=== PATIENT | male | born 1975 | race Caucasian/White ===

== ENCOUNTER 2018-08-19 12:03 | Inpatient (IN) | payer BC, SELFPAY ==
[2017-07-23 17:51] VITALS: BMI 30.5
[2018-08-19] VITALS (8 sets, daily range): BP systolic 137–154; BP diastolic 77–101; PULSE 67–97; RESP 16–20; TEMP 36.6–36.8; O2SAT 96–98; BMI 29.0
--- NOTE | 2018-08-19 12:41 | PCM.HP.STD ---
History of Present Illness Date of Admission: 08/19/18 Chief Complaint: Acute alcohol withdrawal The patient is a 42 year old M with a history of chronic alcohol abuse. He drinks about 1.75 L of vodka every 3 days. He was admitted with a complaint of alcohol withdrawal. He last had a drink yesterday morning. He admits to feeling feverish and having tremors. He denies any cough or chest pain, shortness of breath, abdominal pain, diarrhea or vomiting. Is going through rehab twice in the past but was unsuccessful and fell off the wan. He has been admitted to be managed for alcohol withdrawal. CIWA score was 18 at time of admission. [] Past Medical History Allergies amoxicillin Allergy (Verified 07/23/17 17:54) Rash Penicillins Allergy (Verified 07/23/17 17:54) Rash Home Medications: Ambulatory Orders Medication Instructions Recorded NK 08/19/18 Surgical History: no surgical history Psychiatric History: Depression Lives: Alone Smoking Status: Never smoker Alcohol: Heavy Drugs: None - *Family History Maternal History Items: Diabetes, Hypertension Paternal History Items: No pertinent history Review of Systems Constitutional: Reports: Fever. Denies: Chills, Night Sweats, Weight Change Eyes: Denies: Blurred vision HEENT: Denies: Head Aches, Sinus Congestion, Sinus Drainage Cardiovascular: Denies: Chest Pain, Palpitations Respiratory: Denies: Cough, Shortness of Breath, Shortness of breath at rest, Sputum production Gastrointestinal: Denies: Abdominal Pain, Nausea, Vomiting Genitourinary: Denies: Dysuria Musculoskeletal: Denies: Joint Pain, Joint Tenderness Skin: Denies: Rash, Wounds Neurological: Reports: Tremor. Denies: Balance problems, Change in Speech, Slurred speech, Focal weakness, Seizures Psychiatric: Denies: Anxiety, Depression, Homicidal Ideations, Suicidal Ideations Hematologic/ Lymphatic: Denies: Easy Bruising, Easy Bleeding VTE Information - Inpt Only VTE Present on Admission: No VTE Pharm Prophylaxis ordered?: Yes - Physical Exam General: Alert, Oriented x3, Cooperative, No apparent distress, - - looks anxious HEENT: Atraumatic, PERRLA, EOMI, Normocephalic Oral: Dry Mucosa Neck: Supple, No JVD, Negative Carotid Bruits Lungs: Clear to auscultation, Normal air movement, No rhonchi, No wheeze, No rales Cardiovascular: Regular rate, Regular Rhythm, Normal S1, Normal S2, No murmurs Abdomen: Bowel Sounds Present, Soft, Non Tender, Non-Distended, No Hepato-splenomegaly Extremities: No clubbing, No cyanosis, No edema, Capillary Refill Less than 3 Seconds Skin: No rashes, No breakdown Musculoskeletal: No Tenderness to Palpation of Joints or Extremities Lymphatic: No Cervical, Supraclavicular, or Inguinal Adenopathy Neurological: Cranial nerves II-XII grossly intact, Neuro grossly intact, Motor Exam 5/5 strength throughout, - - tremors of UEs Psych/Mental Status: Anxious, Alert and oriented to time, place, person, mood and affect Vital Signs Temp Pulse Resp BP Pulse Ox 98.2 F 87 20 H 154/101 H 98 08/19/18 12:30 08/19/18 12:30 08/19/18 12:30 08/19/18 12:30 08/19/18 12:30 Oxygen Delivery Method Room Air Weight: 226 lb Body Mass Index (BMI) 29.0 Assessment/Plan 42-year-old male admitted for alcohol withdrawal. 1. Acute alcohol withdrawal drinks ~ 1.75L of vodka daily, last had a drink ~ yesterday CIWA score was 18 admit to Med Surg with telemetry check serum alcohol level, urine tox screen, CBC and CMP and magnesium start alcohol withdrawal protocol per [facility] Protocol with Librium monitor CIWA score 2. Elevated liver enzymes likely due to alcohol abuse total bilirubin/AST/ALT- 1.6/174/188 will monitor counselled to quit drinking 3. Thrombocytopenia: platelets are 124. likely due to alcohol abuse. Will monitor 4. Depression: on Citalopram DVT prophylaxis: lovenox Code Visit Inpatient E&M: 24414 Init Hosp L3
--- NOTE | 2018-08-19 12:48 | HP.PCM_ITS ---
History of Present Illness Date of Admission: 08/19/18 Chief Complaint: Acute alcohol withdrawal The patient is a 42 year old M with a history of chronic alcohol abuse. He drinks about 1.75 L of vodka every 3 days. He was admitted with a complaint of alcohol withdrawal. He last had a drink yesterday morning. He admits to feeling feverish and having tremors. He denies any cough or chest pain, shortness of breath, abdominal pain, diarrhea or vomiting. Is going through rehab twice in the past but was unsuccessful and fell off the wan. He has been admitted to be managed for alcohol withdrawal. CIWA score was 18 at time of admission. [] Past Medical History Allergies amoxicillin Allergy (Verified 07/23/17 17:54) Rash Penicillins Allergy (Verified 07/23/17 17:54) Rash Home Medications: Ambulatory Orders Medication Instructions Recorded NK 08/19/18 Surgical History: no surgical history Psychiatric History: Depression Lives: Alone Smoking Status: Never smoker Alcohol: Heavy Drugs: None - *Family History Maternal History Items: Diabetes, Hypertension Paternal History Items: No pertinent history Review of Systems Constitutional: Reports: Fever. Denies: Chills, Night Sweats, Weight Change Eyes: Denies: Blurred vision HEENT: Denies: Head Aches, Sinus Congestion, Sinus Drainage Cardiovascular: Denies: Chest Pain, Palpitations Respiratory: Denies: Cough, Shortness of Breath, Shortness of breath at rest, Sputum production Gastrointestinal: Denies: Abdominal Pain, Nausea, Vomiting Genitourinary: Denies: Dysuria Musculoskeletal: Denies: Joint Pain, Joint Tenderness Skin: Denies: Rash, Wounds Neurological: Reports: Tremor. Denies: Balance problems, Change in Speech, Slurred speech, Focal weakness, Seizures Psychiatric: Denies: Anxiety, Depression, Homicidal Ideations, Suicidal Ideations Hematologic/ Lymphatic: Denies: Easy Bruising, Easy Bleeding VTE Information - Inpt Only VTE Present on Admission: No VTE Pharm Prophylaxis ordered?: Yes - Physical Exam General: Alert, Oriented x3, Cooperative, No apparent distress, - - looks anxious HEENT: Atraumatic, PERRLA, EOMI, Normocephalic Oral: Dry Mucosa Neck: Supple, No JVD, Negative Carotid Bruits Lungs: Clear to auscultation, Normal air movement, No rhonchi, No wheeze, No rales Cardiovascular: Regular rate, Regular Rhythm, Normal S1, Normal S2, No murmurs Abdomen: Bowel Sounds Present, Soft, Non Tender, Non-Distended, No Hepato- splenomegaly Extremities: No clubbing, No cyanosis, No edema, Capillary Refill Less than 3 Seconds Skin: No rashes, No breakdown Musculoskeletal: No Tenderness to Palpation of Joints or Extremities Lymphatic: No Cervical, Supraclavicular, or Inguinal Adenopathy Neurological: Cranial nerves II-XII grossly intact, Neuro grossly intact, Motor Exam 5/5 strength throughout, - - tremors of UEs Psych/Mental Status: Anxious, Alert and oriented to time, place, person, mood and affect Vital Signs Temp Pulse Resp BP Pulse Ox 98.2 F 87 20 H 154/101 H 98 08/19/18 12:30 08/19/18 12:30 08/19/18 12:30 08/19/18 12:30 08/19/18 12:30 Oxygen Delivery Method Room Air Weight: 226 lb Body Mass Index (BMI) 29.0 Assessment/Plan 42-year-old male admitted for alcohol withdrawal. 1. Acute alcohol withdrawal * drinks ~ 1.75L of vodka daily, last had a drink ~ yesterday * CIWA score was 18 * admit to Med Surg with telemetry * check serum alcohol level, urine tox screen, CBC and CMP and magnesium * start alcohol withdrawal protocol per [facility] Protocol with Librium * monitor CIWA score * 2. Elevated liver enzymes * likely due to alcohol abuse * total bilirubin/AST/ALT- 1.6/174/188 * will monitor * counselled to quit drinking * 3. Thrombocytopenia: platelets are 124. likely due to alcohol abuse. Will monitor 4. Depression: on Citalopram DVT prophylaxis: lovenox Code Visit Inpatient E&M: 89421 Init Hosp L3
[2018-08-19] MEDS: LORazepam 1 MG Tablet 2 MG PO ×4 (13:05→21:55)
[2018-08-19] MEDS: Methocarbamol 750 MG Tablet PO ×2 (13:06→21:55)
[2018-08-19] MEDS: chlordiazePOXIDE 25 MG Capsule PO ×2 (13:06→17:54)
[2018-08-19] MEDS: Dicyclomine 10 MG Capsule 20 MG PO ×2 (13:06→21:55)
[2018-08-19] MEDS: cloNIDine HCl 0.1 MG Tablet 0.3 MG PO (13:06)
[2018-08-19 13:10] LABS: Absolute Lymphocyte Count 0.96 X10^3/ul (0.83-4.51); Absolute Neutrophil Count 3.4 X10^3/uL (2.0-7.7); Basophil# 0.05 X10^3/uL; Eosinophil# 0.04 X10^3/uL; Eosinophils% 0.8 % (0-5); Hematocrit 45.9 % (40-54); Hemoglobin 15.6 g/dl (13.0-16.5); Lymphocyte # 0.96 X10^3/ul (4.0); Mean Corpuscular Volume 94.1 fL (80-94); Mean Platelet Vol. 9.3 fl (6.2-12.0); Monocyte# 0.39 X10^3/uL; Monocyte% 8.1 % (0-10); Neutrophil # 3.36 X10^3/uL (2.7-7.7); Neutrophil % 69.9 % (47-70); Platelet Count 124 K/mm3 (150-450); RBC Distribution Width CV 13.4 % (11.6-14.6); RBC Distribution Width SD 46.2 fl (35.1-43.9); Red Blood Count 4.88 M/mm3 (4.6-6.2); White Blood Count 4.8 K/mm3 (4.4-11.0)
[2018-08-19 13:12] LABS: POSITIVE COUNT NO; POSITIVE DIFFERENTIAL NO; POSITIVE MORPHOLOGY NO
[2018-08-19 13:22] LABS: ALB/GLOB Ratio 1.5 RATIO (0.9-2.4); AST(SGOT) 174 U/L (15-37); Alanine Aminotransfer ALT/SGPT 188 U/L (16-61); Albumin, Serum 4.6 g/dL (3.2-5.0); Alkaline Phosphatase 81 U/L (45-117); Anion Gap 12 (5-15); BUN 15 mg/dL (7-18); BUN/Creat Ratio 15.6 RATIO (10-20); Calcium,Total 9.1 mg/dL (8.5-10.1); Chloride 98 mmol/L (98-107); Creatinine, Serum 0.96 mg/dL (0.70-1.30); EST Glomerular Filtration Rate 91 mL/min (>60); Est Glom Filt Rate - Afr Amer 110 mL/min (>60); Estimated Creatinine Clearance 116.55 ml/min; Globulin 3.1 g/dL (2.2-4.2); Glucose 94 mg/dL (74-106); Magnesium 1.7 mg/dL (1.6-2.6); Potassium 4.1 mmol/L (3.5-5.1); Protein, Total 7.7 g/dL (6.4-8.2); Sodium Level 135 mmol/L (136-145)
[2018-08-19 13:59] LABS: Amphetamine Urine VISTA NEGATIVE (<1000 ng/mL); Barbiturate Urine VISTA NEGATIVE (< 200 ng/mL); Benzodiazepine Urine VISTA NEGATIVE (< 200 ng/mL); Cocaine Urine VISTA NEGATIVE (< 300 ng/mL); Ecstacy Urine VISTA NEGATIVE (< 500 ng/mL); Methadone Urine VISTA NEGATIVE (< 300 ng/mL); PCP Urine VISTA NEGATIVE (< 25 ng/mL); THC Urine VISTA NEGATIVE (< 50 ng/mL); Vista UDS pH Range 7
[2018-08-19] MEDS: Ondansetron 8 MG Tablet PO (14:31)
[2018-08-19] MEDS: hydrOXYzine PAM 25 MG Capsule 50 MG PO (17:54)
[2018-08-19] MEDS: Thiamine Hydrochloride 100 MG Tablet PO (17:54)
[2018-08-19] MEDS: MELATONIN 3 MG TABLET PO (21:55)
[2018-08-20] VITALS (11 sets, daily range): BP systolic 119–133; BP diastolic 74–85; PULSE 45–95; RESP 16–18; TEMP 36.4–36.8; O2SAT 98–99
[2018-08-20] MEDS: chlordiazePOXIDE 25 MG Capsule PO ×4 (00:27→21:55)
[2018-08-20] MEDS: LORazepam 1 MG Tablet 2 MG PO ×5 (00:27→18:09)
[2018-08-20] MEDS: hydrOXYzine PAM 25 MG Capsule 50 MG PO ×2 (02:31→12:49)
[2018-08-20] MEDS: Methocarbamol 750 MG Tablet PO ×2 (06:21→18:09)
[2018-08-20] MEDS: Dicyclomine 10 MG Capsule 20 MG PO ×2 (06:21→18:09)
--- NOTE | 2018-08-20 09:04 | PCM.PN.HOSP ---
Subjective: Patient seen and examined. He had an uneventful night and has no complaints. He denies any fever, chills, cough, chest pain, SOB, abdominal pain, diarrhea or vomiting. Review of systems is otherwise negative. Labs and vitals reviewed. Vitals/I&O's: Vital Signs Temp Pulse Resp BP Pulse Ox 98.1 F 60 16 125/74 H 96 08/20/18 06:23 08/20/18 06:23 08/20/18 06:23 08/20/18 06:23 08/19/18 17:49 Oxygen Delivery Method Room Air Weight: 226 lb Body Mass Index (BMI) 29.0 Intake and Output for Last 24 Hours 08/18/18 08/19/18 08/20/18 23:59 23:59 23:59 Intake Total 480 / 480 800 / 800 Balance 480 / 480 800 / 800 General: Alert, Oriented x3, Cooperative, No apparent distress HEENT: Atraumatic, PERRLA, EOMI, Normocephalic Oral: Moist Mucosa Neck: Supple, No JVD, Negative Carotid Bruits Lungs: Clear to auscultation, Normal air movement, No rhonchi, No wheeze, No rales Cardiovascular: Regular rate, Regular Rhythm, Normal S1, Normal S2, No murmurs Abdomen: Bowel Sounds Present, Soft, Non Tender, Non-Distended, No Hepato-splenomegaly Extremities: No clubbing, No cyanosis, No edema, Capillary Refill Less than 3 Seconds Skin: No rashes, No breakdown Musculoskeletal: No Tenderness to Palpation of Joints or Extremities Lymphatic: No Cervical, Supraclavicular, or Inguinal Adenopathy Neurological: Cranial nerves II-XII grossly intact, Neuro grossly intact, Motor Exam 5/5 strength throughout Psych/Mental Status: Normal Affect, Appropriate, Alert and oriented to time, place, person, mood and affect Laboratory Results 08/19/18 12:55: WBC 4.8, RBC 4.88, Hgb 15.6, Hct 45.9, MCV 94.1 H, MCH 32.0, MCHC 34.0, RDW 13.4, RDW Differential 46.2 H, Plt Count 124 L, MPV 9.3, Immature Gran % (Auto) 0.200, Neut % (Auto) 69.9, Lymph % (Auto) 20.0, [place] % (Auto) 8.1, Eos % (Auto) 0.8, Baso % (Auto) 1.0, Absolute Neuts (auto) 3.4, Absolute Lymphs (auto) 0.96, Total Counted Not Reportable 08/19/18 12:55: Sodium 135 L, Potassium 4.1, Chloride 98, Carbon Dioxide 25.0, Anion Gap 12, BUN 15, Creatinine 0.96, Estim Creat Clear Calc 116.55, Est GFR (MDRD) Af Amer 110, Est GFR (MDRD) Non-Af 91, BUN/Creatinine Ratio 15.6, Glucose 94, Calcium 9.1, Magnesium 1.7, Total Bilirubin 1.60 H, AST 174 H, ALT 188 H, Alkaline Phosphatase 81, Total Protein 7.7, Albumin 4.6, Globulin 3.1, Albumin/Globulin Ratio 1.5 08/19/18 12:55: Ethyl Alcohol 94.0 08/19/18 13:30: Urine Opiates Screen NEGATIVE, Urine Methadone Screen NEGATIVE, Ur Barbiturates Screen NEGATIVE, Ur Phencyclidine Scrn NEGATIVE, Ur Amphetamines Screen NEGATIVE, U Methamphetamin-MDMA NEGATIVE, U Benzodiazepines Scrn NEGATIVE, Urine Cocaine Screen NEGATIVE, U Cannabinoids Screen NEGATIVE, Ur Drug Screen Comment Current Medications Chlordiazepoxide (Librium) 50 mg PO Q8H HETAL; Taper Stop: 08/22/18 14:44 Last Admin: 08/20/18 06:21 Dose: 50 mg Dicyclomine HCl (Bentyl) 20 mg PO Q6H PRN PRN PRN Reason: abdominal discomfort Last Admin: 08/20/18 06:21 Dose: 20 mg Enoxaparin Sodium (Lovenox) 40 mg SC DAILY@1000 HETAL Folic Acid (Folic Acid) 1 mg PO DAILY@0800 [facility] Stop: 08/22/18 08:01 Hydroxyzine Pamoate (Vistaril Pamoate Capsule) 50 mg PO Q6H PRN PRN PRN Reason: Mild Anxiety (score 1/3) Last Admin: 08/20/18 02:31 Dose: 50 mg Lorazepam (Ativan) 2 mg PO Q6H HETAL; Taper Stop: 08/25/18 12:44 Last Admin: 08/20/18 06:21 Dose: 2 mg Lorazepam (Ativan) 2 mg PO Q2H PRN PRN; Protocol PRN Reason: CIWA score > 8 but <15 Last Admin: 08/20/18 02:31 Dose: 2 mg Lorazepam (Ativan) 2 mg PO UD PRN; Protocol PRN Reason: CIWA score >/=15. Lorazepam (Ativan) 2 mg IV Q2H PRN PRN; Protocol PRN Reason: CIWA score > 8 but <15 Lorazepam (Ativan) 2 mg IV UD PRN; Protocol PRN Reason: CIWA score >/=15. Magnesium Hydroxide (Milk Of Magnesia) 30 ml PO DAILY PRN PRN PRN Reason: Constipation Melatonin (Melatonin) 3 mg PO QHS [facility] Last Admin: 08/19/18 21:55 Dose: 3 mg Methocarbamol (Methocarbamol) 750 mg PO Q6H PRN PRN PRN Reason: Muscle Aches Last Admin: 08/20/18 06:21 Dose: 750 mg Multivitamins/Minerals (Multivitamin With Minerals) [facility] Ondansetron HCl (Zofran) 8 mg PO Q8H PRN PRN PRN Reason: NAUSEA Last Admin: 08/19/18 14:31 Dose: 8 mg Sodium Chloride () 5 - 15 ml IV UD PRN PRN Reason: SALINE FLUSH Thiamine HCl (Vitamin B1) 100 mg PO BIDCM [facility] Stop: 08/22/18 08:01 Last Admin: 08/19/18 17:54 Dose: 100 mg Medical Necessity - Tobacco Use Smoking Status: Never smoker Assessment/Plan 42-year-old male admitted for alcohol withdrawal. 1. Acute alcohol withdrawal drinks ~ 1.75L of vodka daily, last had a drink ~ yesterday CIWA score this morning- 7 on alcohol withdrawal protocol with librium monitor CIWA score 2. Elevated liver enzymes likely due to alcohol abuse on admission, otal bilirubin/AST/ALT- 1.6/174/188 will monitor counselled to quit drinking 3. Thrombocytopenia: platelets were 124 on admission. likely due to alcohol abuse. Will monitor 4. Depression: on Citalopram DVT prophylaxis: lovenox Code Visit Inpatient E&M: 44093 Subs Hosp L3
--- NOTE | 2018-08-20 09:10 | PN_ITS ---
Subjective: Patient seen and examined. He had an uneventful night and has no complaints. He denies any fever, chills, cough, chest pain, SOB, abdominal pain, diarrhea or vomiting. Review of systems is otherwise negative. Labs and vitals reviewed. Vitals/I&O's: Vital Signs Temp Pulse Resp BP Pulse Ox 98.1 F 60 16 125/74 H 96 08/20/18 06:23 08/20/18 06:23 08/20/18 06:23 08/20/18 06:23 08/19/18 17:49 Oxygen Delivery Method Room Air Weight: 226 lb Body Mass Index (BMI) 29.0 Intake and Output for Last 24 Hours 08/18/18 08/19/18 08/20/18 23:59 23:59 23:59 Intake Total 480 / 480 800 / 800 Balance 480 / 480 800 / 800 General: Alert, Oriented x3, Cooperative, No apparent distress HEENT: Atraumatic, PERRLA, EOMI, Normocephalic Oral: Moist Mucosa Neck: Supple, No JVD, Negative Carotid Bruits Lungs: Clear to auscultation, Normal air movement, No rhonchi, No wheeze, No rales Cardiovascular: Regular rate, Regular Rhythm, Normal S1, Normal S2, No murmurs Abdomen: Bowel Sounds Present, Soft, Non Tender, Non-Distended, No Hepato- splenomegaly Extremities: No clubbing, No cyanosis, No edema, Capillary Refill Less than 3 Seconds Skin: No rashes, No breakdown Musculoskeletal: No Tenderness to Palpation of Joints or Extremities Lymphatic: No Cervical, Supraclavicular, or Inguinal Adenopathy Neurological: Cranial nerves II-XII grossly intact, Neuro grossly intact, Motor Exam 5/5 strength throughout Psych/Mental Status: Normal Affect, Appropriate, Alert and oriented to time, place, person, mood and affect Laboratory Results 08/19/18 12:55: WBC 4.8, RBC 4.88, Hgb 15.6, Hct 45.9, MCV 94.1 H, MCH 32.0, MCHC 34.0, RDW 13.4, RDW Differential 46.2 H, Plt Count 124 L, MPV 9.3, Immature Gran % (Auto) 0.200, Neut % (Auto) 69.9, Lymph % (Auto) 20.0, [place] % (Auto) 8.1, Eos % (Auto) 0.8, Baso % (Auto) 1.0, Absolute Neuts (auto) 3.4, Absolute Lymphs (auto) 0.96, Total Counted Not Reportable 08/19/18 12:55: Sodium 135 L, Potassium 4.1, Chloride 98, Carbon Dioxide 25.0, Anion Gap 12, BUN 15, Creatinine 0.96, Estim Creat Clear Calc 116.55, Est GFR (MDRD) Af Amer 110, Est GFR (MDRD) Non-Af 91, BUN/Creatinine Ratio 15.6, Glucose 94, Calcium 9.1, Magnesium 1.7, Total Bilirubin 1.60 H, AST 174 H, ALT 188 H, Alkaline Phosphatase 81, Total Protein 7.7, Albumin 4.6, Globulin 3.1, Albumin/Globulin Ratio 1.5 08/19/18 12:55: Ethyl Alcohol 94.0 08/19/18 13:30: Urine Opiates Screen NEGATIVE, Urine Methadone Screen NEGATIVE, Ur Barbiturates Screen NEGATIVE, Ur Phencyclidine Scrn NEGATIVE, Ur Amphetamines Screen NEGATIVE, U Methamphetamin-MDMA NEGATIVE, U Benzodiazepines Scrn NEGATIVE, Urine Cocaine Screen NEGATIVE, U Cannabinoids Screen NEGATIVE, Ur Drug Screen Comment Current Medications Chlordiazepoxide (Librium) 50 mg PO Q8H HETAL; Taper Stop: 08/22/18 14:44 Last Admin: 08/20/18 06:21 Dose: 50 mg Dicyclomine HCl (Bentyl) 20 mg PO Q6H PRN PRN PRN Reason: abdominal discomfort Last Admin: 08/20/18 06:21 Dose: 20 mg Enoxaparin Sodium (Lovenox) 40 mg SC DAILY@1000 HETAL Folic Acid (Folic Acid) 1 mg PO DAILY@0800 [facility] Stop: 08/22/18 08:01 Hydroxyzine Pamoate (Vistaril Pamoate Capsule) 50 mg PO Q6H PRN PRN PRN Reason: Mild Anxiety (score 1/3) Last Admin: 08/20/18 02:31 Dose: 50 mg Lorazepam (Ativan) 2 mg PO Q6H HETAL; Taper Stop: 08/25/18 12:44 Last Admin: 08/20/18 06:21 Dose: 2 mg Lorazepam (Ativan) 2 mg PO Q2H PRN PRN; Protocol PRN Reason: CIWA score > 8 but <15 Last Admin: 08/20/18 02:31 Dose: 2 mg Lorazepam (Ativan) 2 mg PO UD PRN; Protocol PRN Reason: CIWA score >/=15. Lorazepam (Ativan) 2 mg IV Q2H PRN PRN; Protocol PRN Reason: CIWA score > 8 but <15 Lorazepam (Ativan) 2 mg IV UD PRN; Protocol PRN Reason: CIWA score >/=15. Magnesium Hydroxide (Milk Of Magnesia) 30 ml PO DAILY PRN PRN PRN Reason: Constipation Melatonin (Melatonin) 3 mg PO QHS [facility] Last Admin: 08/19/18 21:55 Dose: 3 mg Methocarbamol (Methocarbamol) 750 mg PO Q6H PRN PRN PRN Reason: Muscle Aches Last Admin: 08/20/18 06:21 Dose: 750 mg Multivitamins/Minerals (Multivitamin With Minerals) [facility] Ondansetron HCl (Zofran) 8 mg PO Q8H PRN PRN PRN Reason: NAUSEA Last Admin: 08/19/18 14:31 Dose: 8 mg Sodium Chloride () 5 - 15 ml IV UD PRN PRN Reason: SALINE FLUSH Thiamine HCl (Vitamin B1) 100 mg PO BIDCM [facility] Stop: 08/22/18 08:01 Last Admin: 08/19/18 17:54 Dose: 100 mg Medical Necessity - Tobacco Use Smoking Status: Never smoker Assessment/Plan 42-year-old male admitted for alcohol withdrawal. 1. Acute alcohol withdrawal * drinks ~ 1.75L of vodka daily, last had a drink ~ yesterday * CIWA score this morning- 7 * on alcohol withdrawal protocol with librium * monitor CIWA score * 2. Elevated liver enzymes * likely due to alcohol abuse * on admission, otal bilirubin/AST/ALT- 1.6/174/188 * will monitor * counselled to quit drinking * 3. Thrombocytopenia: platelets were 124 on admission. likely due to alcohol abuse. Will monitor 4. Depression: on Citalopram DVT prophylaxis: lovenox Code Visit Inpatient E&M: 22721 Subs Hosp L3
[2018-08-20] MEDS: Multivitamins,Ther W-Minerals Tablet 1 TABLET PO (09:36)
[2018-08-20] MEDS: Folic Acid 1 MG Tablet PO (09:36)
[2018-08-20] MEDS: Thiamine Hydrochloride 100 MG Tablet PO ×2 (09:36→18:10)
[2018-08-20] MEDS: Enoxaparin 40 MG/0.4 ML Syringe SC (09:37)
--- NOTE | 2018-08-20 16:34 | CHAPLAIN ---
Type of Pastoral Visit _x__ Initial Visit ___ Follow-up Visit ___ On-call Visit ___ General Patient Visit ___ Spiritual Assessment ___ Family Conference ___ Bereavement ___ Rapid Response ___ Code Blue ___ Other (describe below) Pastoral Care Referral From _x__ Patient ___ Family ___ Nurse ___ Physician ___ Supervisor [place] ___ Account Resolution Expert ___ Other (describe below) Sacrament/Intervention _x__ Active listening ___ Anointing ___ Christianity ___ Bereavement ___ Communion _x__ Samantha exploration ___ _x__ Life review _x__ Prayer ___ Reconciliation ___ Sacrament of Sick _x__ Supportive presence ___ Wedding ___ Other (describe below) Pastoral Comments patient very talkative and gave adult life story; pt has deep samantha and is well connected to the Judaism heritage; pt is very open about his need for emotional, social, and spiritual support in life; pt has good family support at this time; pt is open to further spiritual support and conversation
[2018-08-20] MEDS: Loperamide 2 MG Capsule PO (18:28)
[2018-08-20] MEDS: MELATONIN 3 MG TABLET PO (21:55)
[2018-08-21] MEDS: LORazepam 1 MG Tablet 2 MG PO ×5 (00:15→20:23)
[2018-08-21] MEDS: chlordiazePOXIDE 25 MG Capsule PO ×2 (06:27→15:17)
[2018-08-21 06:30] VITALS: BP 120/77; PULSE 76; RESP 16; TEMP 36.7; O2SAT 99
[2018-08-21] MEDS: Thiamine Hydrochloride 100 MG Tablet PO ×2 (08:11→17:05)
[2018-08-21] MEDS: Multivitamins,Ther W-Minerals Tablet 1 TABLET PO (08:12)
[2018-08-21] MEDS: Folic Acid 1 MG Tablet PO (08:12)
--- NOTE | 2018-08-21 11:46 | PCM.PN.HOSP ---
Subjective: Patient seen and examined. He complains of some lightheadedness and dizziness when he walks. He denies any chest pain or palpitations, abdominal pain, fever chills, diarrhea vomiting. 12 point review of systems otherwise negative. Labs and vitals reviewed. Vitals/I&O's: Vital Signs Temp Pulse Resp BP Pulse Ox 98.0 F 76 16 120/77 99 08/21/18 06:30 08/21/18 06:30 08/21/18 06:30 08/21/18 06:30 08/21/18 06:30 Oxygen Delivery Method Room Air Weight: 226 lb 0.004 oz Body Mass Index (BMI) 29.0 Intake and Output for Last 24 Hours 08/19/18 08/20/18 08/21/18 23:59 23:59 23:59 Intake Total 480 / 480 800 / 800 Balance 480 / 480 800 / 800 General: Alert, Oriented x3, Cooperative, No apparent distress HEENT: Atraumatic, PERRLA, EOMI, Normocephalic Oral: Moist Mucosa Neck: Supple, No JVD, Negative Carotid Bruits Lungs: Clear to auscultation, Normal air movement, No rhonchi, No wheeze, No rales Cardiovascular: Regular rate, Regular Rhythm, Normal S1, Normal S2, No murmurs Abdomen: Bowel Sounds Present, Soft, Non Tender, Non-Distended, No Hepato-splenomegaly Extremities: No clubbing, No cyanosis, No edema, Capillary Refill Less than 3 Seconds Skin: No rashes, No breakdown Musculoskeletal: No Tenderness to Palpation of Joints or Extremities Lymphatic: No Cervical, Supraclavicular, or Inguinal Adenopathy Neurological: Cranial nerves II-XII grossly intact, Neuro grossly intact, Motor Exam 5/5 strength throughout Psych/Mental Status: Normal Affect, Appropriate, Alert and oriented to time, place, person, mood and affect Current Medications Chlordiazepoxide (Librium) 50 mg PO Q8H HETAL; Taper Stop: 08/22/18 14:44 Last Admin: 08/21/18 06:27 Dose: 50 mg Dicyclomine HCl (Bentyl) 20 mg PO Q6H PRN PRN PRN Reason: abdominal discomfort Last Admin: 08/20/18 18:09 Dose: 20 mg Enoxaparin Sodium (Lovenox) 40 mg SC DAILY@1000 HETAL Last Admin: 08/20/18 09:37 Dose: 40 mg Folic Acid (Folic Acid) 1 mg PO DAILY@0800 [facility] Stop: 08/22/18 08:01 Last Admin: 08/21/18 08:12 Dose: 1 mg Hydroxyzine Pamoate (Vistaril Pamoate Capsule) 50 mg PO Q6H PRN PRN PRN Reason: Mild Anxiety (score 1/3) Last Admin: 08/20/18 12:49 Dose: 50 mg Loperamide HCl (Imodium) 2 mg PO Q4H PRN PRN PRN Reason: Diarrhea Last Admin: 08/20/18 18:28 Dose: 2 mg Lorazepam (Ativan) 2 mg PO Q6H [facility]; Taper Stop: 08/25/18 12:44 Last Admin: 08/21/18 06:27 Dose: 2 mg Lorazepam (Ativan) 2 mg PO Q2H PRN PRN; Protocol PRN Reason: CIWA score > 8 but <15 Last Admin: 08/20/18 02:31 Dose: 2 mg Lorazepam (Ativan) 2 mg PO UD PRN; Protocol PRN Reason: CIWA score >/=15. Lorazepam (Ativan) 2 mg IV Q2H PRN PRN; Protocol PRN Reason: CIWA score > 8 but <15 Lorazepam (Ativan) 2 mg IV UD PRN; Protocol PRN Reason: CIWA score >/=15. Magnesium Hydroxide (Milk Of Magnesia) 30 ml PO DAILY PRN PRN PRN Reason: Constipation Melatonin (Melatonin) 3 mg PO QHS [facility] Last Admin: 08/20/18 21:55 Dose: 3 mg Methocarbamol (Methocarbamol) 750 mg PO Q6H PRN PRN PRN Reason: Muscle Aches Last Admin: 08/20/18 18:09 Dose: 750 mg Multivitamins/Minerals (Multivitamin With Minerals) [facility] Last Admin: 08/21/18 08:12 Dose: 1 tablet Ondansetron HCl (Zofran) 8 mg PO Q8H PRN PRN PRN Reason: NAUSEA Last Admin: 08/19/18 14:31 Dose: 8 mg Sodium Chloride () 5 - 15 ml IV UD PRN PRN Reason: SALINE FLUSH Thiamine HCl (Vitamin B1) [facility] Stop: 08/22/18 08:01 Last Admin: 08/21/18 08:11 Dose: 100 mg Medical Necessity - Tobacco Use Smoking Status: Never smoker Assessment/Plan 42-year-old male admitted for alcohol withdrawal. 1. Acute alcohol withdrawal on alcohol withdrawal protocol with librium monitor CIWA score 2. Elevated liver enzymes likely due to alcohol abuse on admission, total bilirubin/AST/ALT- 1.6/174/188 will monitor counselled to quit drinking 3. Thrombocytopenia: due to alcohol abuse. counseled to quit drinking. 4. Depression: on Citalopram DVT prophylaxis: lovenox Code Visit Inpatient E&M: 45853 Subs Hosp L2
--- NOTE | 2018-08-21 11:52 | PN_ITS ---
Subjective: Patient seen and examined. He complains of some lightheadedness and dizziness when he walks. He denies any chest pain or palpitations, abdominal pain, fever chills, diarrhea vomiting. 12 point review of systems otherwise negative. Labs and vitals reviewed. Vitals/I&O's: Vital Signs Temp Pulse Resp BP Pulse Ox 98.0 F 76 16 120/77 99 08/21/18 06:30 08/21/18 06:30 08/21/18 06:30 08/21/18 06:30 08/21/18 06:30 Oxygen Delivery Method Room Air Weight: 226 lb 0.004 oz Body Mass Index (BMI) 29.0 Intake and Output for Last 24 Hours 08/19/18 08/20/18 08/21/18 23:59 23:59 23:59 Intake Total 480 / 480 800 / 800 Balance 480 / 480 800 / 800 General: Alert, Oriented x3, Cooperative, No apparent distress HEENT: Atraumatic, PERRLA, EOMI, Normocephalic Oral: Moist Mucosa Neck: Supple, No JVD, Negative Carotid Bruits Lungs: Clear to auscultation, Normal air movement, No rhonchi, No wheeze, No rales Cardiovascular: Regular rate, Regular Rhythm, Normal S1, Normal S2, No murmurs Abdomen: Bowel Sounds Present, Soft, Non Tender, Non-Distended, No Hepato- splenomegaly Extremities: No clubbing, No cyanosis, No edema, Capillary Refill Less than 3 Seconds Skin: No rashes, No breakdown Musculoskeletal: No Tenderness to Palpation of Joints or Extremities Lymphatic: No Cervical, Supraclavicular, or Inguinal Adenopathy Neurological: Cranial nerves II-XII grossly intact, Neuro grossly intact, Motor Exam 5/5 strength throughout Psych/Mental Status: Normal Affect, Appropriate, Alert and oriented to time, place, person, mood and affect Current Medications Chlordiazepoxide (Librium) 50 mg PO Q8H [facility]; Taper Stop: 08/22/18 14:44 Last Admin: 08/21/18 06:27 Dose: 50 mg Dicyclomine HCl (Bentyl) 20 mg PO Q6H PRN PRN PRN Reason: abdominal discomfort Last Admin: 08/20/18 18:09 Dose: 20 mg Enoxaparin Sodium (Lovenox) 40 mg SC DAILY@1000 [facility] Last Admin: 08/20/18 09:37 Dose: 40 mg Folic Acid (Folic Acid) 1 mg PO DAILY@0800 [facility] Stop: 08/22/18 08:01 Last Admin: 08/21/18 08:12 Dose: 1 mg Hydroxyzine Pamoate (Vistaril Pamoate Capsule) 50 mg PO Q6H PRN PRN PRN Reason: Mild Anxiety (score 1/3) Last Admin: 08/20/18 12:49 Dose: 50 mg Loperamide HCl (Imodium) 2 mg PO Q4H PRN PRN PRN Reason: Diarrhea Last Admin: 08/20/18 18:28 Dose: 2 mg Lorazepam (Ativan) 2 mg PO Q6H [facility]; Taper Stop: 08/25/18 12:44 Last Admin: 08/21/18 06:27 Dose: 2 mg Lorazepam (Ativan) 2 mg PO Q2H PRN PRN; Protocol PRN Reason: CIWA score > 8 but <15 Last Admin: 08/20/18 02:31 Dose: 2 mg Lorazepam (Ativan) 2 mg PO UD PRN; Protocol PRN Reason: CIWA score >/=15. Lorazepam (Ativan) 2 mg IV Q2H PRN PRN; Protocol PRN Reason: CIWA score > 8 but <15 Lorazepam (Ativan) 2 mg IV UD PRN; Protocol PRN Reason: CIWA score >/=15. Magnesium Hydroxide (Milk Of Magnesia) 30 ml PO DAILY PRN PRN PRN Reason: Constipation Melatonin (Melatonin) 3 mg PO QHS [facility] Last Admin: 08/20/18 21:55 Dose: 3 mg Methocarbamol (Methocarbamol) 750 mg PO Q6H PRN PRN PRN Reason: Muscle Aches Last Admin: 08/20/18 18:09 Dose: 750 mg Multivitamins/Minerals ([facility]ivitamin With Minerals) [facility] Last Admin: 08/21/18 08:12 Dose: 1 tablet Ondansetron HCl (Zofran) 8 mg PO Q8H PRN PRN PRN Reason: NAUSEA Last Admin: 08/19/18 14:31 Dose: 8 mg Sodium Chloride () 5 - 15 ml IV UD PRN PRN Reason: SALINE FLUSH Thiamine HCl (Vitamin B1) [facility] Stop: 08/22/18 08:01 Last Admin: 08/21/18 08:11 Dose: 100 mg Medical Necessity - Tobacco Use Smoking Status: Never smoker Assessment/Plan 42-year-old male admitted for alcohol withdrawal. 1. Acute alcohol withdrawal * on alcohol withdrawal protocol with librium * monitor CIWA score * 2. Elevated liver enzymes * likely due to alcohol abuse * on admission, total bilirubin/AST/ALT- 1.6/174/188 * will monitor * counselled to quit drinking * 3. Thrombocytopenia: due to alcohol abuse. counseled to quit drinking. 4. Depression: on Citalopram DVT prophylaxis: lovenox Code Visit Inpatient E&M: 05056 Subs Hosp L2
[2018-08-21 11:56] VITALS: BP 127/90; RESP 18
[2018-08-21] MEDS: Methocarbamol 750 MG Tablet PO ×2 (12:00→20:23)
--- NOTE | 2018-08-21 14:13 | CHAPLAIN ---
Type of Pastoral Visit ___ Initial Visit _x__ Follow-up Visit ___ On-call Visit ___ General Patient Visit ___ Spiritual Assessment ___ Family Conference ___ Bereavement ___ Rapid Response ___ Code Blue ___ Other (describe below) Pastoral Care Referral From _x__ Patient ___ Family ___ Nurse ___ Physician ___ Performance Test Architect ___ Staff Development Manager ___ Other (describe below) Sacrament/Intervention _x__ Active listening ___ Anointing ___ Temple ___ Bereavement ___ Communion ___ Samantha exploration ___ ___ Life review ___ Prayer ___ Reconciliation ___ Sacrament of Sick ___ Supportive presence ___ Wedding ___ Other (describe below) Pastoral Comments
[2018-08-21] MEDS: MELATONIN 3 MG TABLET PO (21:14)
[2018-08-21 21:15] VITALS: BP 126/80; PULSE 87; RESP 16; TEMP 36.8; O2SAT 98
[2018-08-21 21:20] VITALS: BP 126/80; PULSE 87; RESP 16; TEMP 36.8; O2SAT 99
[2018-08-22 03:41] VITALS: BP 123/72; PULSE 57; RESP 16; TEMP 36.5; O2SAT 98
[2018-08-22] MEDS: chlordiazePOXIDE 25 MG Capsule PO (03:43)
[2018-08-22] MEDS: LORazepam 1 MG Tablet 2 MG PO (03:44)
[2018-08-22 07:51] VITALS: BP 114/79; PULSE 82; RESP 14; TEMP 36.3; O2SAT 99
[2018-08-22] MEDS: Thiamine Hydrochloride 100 MG Tablet PO (07:57)
[2018-08-22] MEDS: Folic Acid 1 MG Tablet PO (07:57)
[2018-08-22] MEDS: Multivitamins,Ther W-Minerals Tablet 1 TABLET PO (07:57)
--- NOTE | 2018-08-22 09:11 | PCM.DC ---
You will use the following diet at home:: No restrictions Your food should be the consistency of: Regular Your liquids should be the consistency of: Regular/Thin Discharge Activity: Return to Normal Activity Weight Bearing Status: Weight bearing as tolerated Call your doctor if you observe: Shortness of breath, Dizziness Allergies/Adverse Reactions: Allergies amoxicillin Allergy (Verified 07/23/17 17:54) Rash Penicillins Allergy (Verified 07/23/17 17:54) Rash Medications to take at Discharge NK 08/19/18 Primary Care Physician: Mekhi Lynn MD [Primary Care Provider] - Please follow up with your Primary Care Physician in: 1-2 weeks Test Results: Test results from this visit will be discussed in further detail at your follow-up appointment, if applicable. Proposed Discharge Date: 08/22/18
--- NOTE | 2018-08-22 09:14 | DCINST_ITS ---
You will use the following diet at home:: No restrictions Your food should be the consistency of: Regular Your liquids should be the consistency of: Regular/Thin Discharge Activity: Return to Normal Activity Weight Bearing Status: Weight bearing as tolerated Call your doctor if you observe: Shortness of breath, Dizziness Allergies/Adverse Reactions: Allergies amoxicillin Allergy (Verified 07/23/17 17:54) Rash Penicillins Allergy (Verified 07/23/17 17:54) Rash Medications to take at Discharge NK 08/19/18 Primary Care Physician: Mekhi Lynn MD [Primary Care Provider] - Please follow up with your Primary Care Physician in: 1-2 weeks Test Results: Test results from this visit will be discussed in further detail at your follow- up appointment, if applicable. Proposed Discharge Date: 08/22/18
--- NOTE | 2018-08-22 09:14 | DS.PCM_ITS ---
Discharge Date and Diagnosis Date of Admission: 08/19/18 Date of Discharge: 08/22/18 - Primary Discharge Diagnosis acute alcohol withdrawal Hospital Course and Treatment Operations: None Procedures: None Summary of Care Provided: The patient is a 42 year old M with a history of chronic alcohol abuse. He drinks about 1.75 L of vodka every 3 days. He was admitted with a complaint of alcohol withdrawal. He last had a drink on the morning prior to the day of admission. He had associated fever and tremors. He had gone through rehab twice in the past but was unsuccessful. He was admitetd and managed for alcohol withdrawal. CIWA score was 18 at time of admission. He was put on alcohol withdrawal protocol with Librium. Liver enzymes were noted to be elevated during admission, which was thought to be due to alcohol abuse. Patient remained stable and was discharged home on 08/22/18. To follow-up with his PCP for serial monitoring of his liver enzymes and for referral to gastroenterology as deemed appropriate Patient seen and examined on the day of discharge. He had no complaints and felt well. He denied any fever, any chills, cough or chest pain, abdominal pain, diarrhea vomiting. 12 point review of systems otherwise negative. Labs and vitals reviewed. Home medications reviewed and reconciled. On examination Vital Signs Height 6 ft 2 in Weight: 226 lb 0.004 oz Weight in Pounds 226.0 lbs Pulse Ox 99 Temperature 97.4 F Pulse Rate 82 Respiratory Rate 14 Blood Pressure 114/79 Blood Pressure Position Sitting General: Alert, Oriented x3, Cooperative, No apparent distress HEENT: Atraumatic, PERRLA, EOMI, Normocephalic Oral: Moist Mucosa Neck: Supple, No JVD, Negative Carotid Bruits Lungs: Clear to auscultation, Normal air movement, No rhonchi, No wheeze, No rales Cardiovascular: Regular rate, Regular Rhythm, Normal S1, Normal S2, No murmurs Abdomen: Bowel Sounds Present, Soft, Non Tender, Non-Distended, No Hepato- splenomegaly Extremities: No clubbing, No cyanosis, No edema, Capillary Refill Less than 3 Seconds Skin: No rashes, No breakdown Musculoskeletal: No Tenderness to Palpation of Joints or Extremities Lymphatic: No Cervical, Supraclavicular, or Inguinal Adenopathy Neurological: Cranial nerves II-XII grossly intact, Neuro grossly intact, Motor Exam 5/5 strength throughout Psych/Mental Status: Normal Affect, Appropriate, Alert and oriented to time, place, person, mood and affect - Physical Exam Vital Signs Temp Pulse Resp BP Pulse Ox 97.4 F L 82 14 114/79 99 08/22/18 07:51 08/22/18 07:51 08/22/18 07:51 08/22/18 07:51 08/22/18 07:51 Oxygen Delivery Method Room Air Weight: 226 lb 0.004 oz Body Mass Index (BMI) 29.0 Intake and Output for Last 24 Hours 08/20/18 08/21/18 08/22/18 23:59 23:59 23:59 Intake Total 800 / 800 Balance 800 / 800 Discharge Diet: Low fat/ Low Cholesterol Discharge Activity: Return to Normal Activity Weight Bearing Status: Weight bearing as tolerated Call your doctor if you observe: Shortness of breath, Dizziness Home Medications: Medications to take at Discharge NK 08/19/18 Primary Care Physician: Mekhi Lynn MD [Primary Care Provider] - Please follow up with your Primary Care Physician in: 1-2 weeks Disposition: Home Minutes spent on discharge:: 37 Patient Condition:: Stable Medical Necessity - Tobacco Use Smoking Status: Never smoker Meaningful Use Info Meaningful Use Diagnoses (Choose all that apply): None applicable Code Visit Inpatient E&M: 60090 Disch Hosp
== END 2018-08-22 10:35 | disposition home or self-care (01) | DRG 897 ==
PROVIDERS: Admitting Provider Student in an Organized Health Care Education/Training Program; Family Provider Family Medicine; PCP Family Medicine; Referring Provider Student in an Organized Health Care Education/Training Program; Visit Provider Student in an Organized Health Care Education/Training Program
DX: F10.239 Alcohol dependence with withdrawal, unspecified (principal); F32.9 Major depressive disorder, single episode, unspecified; R74.8 Abnormal levels of other serum enzymes; D69.59 Other secondary thrombocytopenia
CPT/HCPCS: 36415; 80053; 80307; 80320; 83735; 85025; 97802; G0480

== ENCOUNTER 2018-12-31 16:28 | Inpatient (IN) | payer BC, SELFPAY ==
[2018-08-19 12:22] VITALS: BMI 29.0
[2018-12-31 16:29] VITALS: BP 149/95; PULSE 80; RESP 16; TEMP 36.7; O2SAT 96; BMI 29.0
--- NOTE | 2018-12-31 16:55 | ED.VISSUMM ---
- ER Visit Summary Date of Service: 12/31/18 Chief Complaint: Wants detox History of Present Illness: The patient is a 43 M presenting wanting alcohol detox. Patient was sent by [facility] for evaluation. Patient states he has been drinking heavily over the past week. His last detox was in August. He was sober until a week ago. He had a relationship break-up a week ago that started caused him to start drinking again. Denies suicidal ideation. He drinks 1.75 L vodka per day. No history of withdrawal seizures. History of remote DTs. Denies drug use. Physical Examination: Vitals are stable. Patient is afebrile. Alert no acute distress. HEENT exam is unremarkable. Neck is supple. Lungs are clear and equal bilaterally. Heart is regular rate and rhythm. Abdomen is soft nontender nondistended. Extremities are unremarkable. Skin is warm and dry. No focal neurologic deficit. Remainder of exam is unremarkable. Emergency Department Course and Treatment: CIWA score 37. CBC, chemistries unremarkable. Liver enzymes show ALT 258, AST 214. Tox negative. Alcohol 304. Discussed with hospitalist for admission. Disposition: Admission Impression: Alcohol withdrawal This note was generated with [employer] dictation software. It may contain incorrect words, spelling, and punctuation that were not noted in review of the chart prior to signing ED Disposition - Plan for ED Patient: Referrals: Mekhi Lynn MD [Primary Care Provider] -
[2018-12-31 17:21] LABS: Absolute Lymphocyte Count 1.39 X10^3/ul (0.83-4.51); Absolute Neutrophil Count 2.7 X10^3/uL (2.0-7.7); Basophil# 0.05 X10^3/uL; Basophil% 1.1 % (0-1); Eosinophil# 0.14 X10^3/uL; Hematocrit 47.5 % (40-54); Hemoglobin 16.4 g/dl (13.0-16.5); Lymphocyte # 1.39 X10^3/ul (4.0); Lymphocyte % 30.2 % (19-41); Mean Corp Hgb Conc 34.5 g/gl (32-36); Mean Corpuscular Hgb 31.8 pg (27.0-32.0); Mean Corpuscular Volume 92.1 fL (80-94); Monocyte# 0.34 X10^3/uL; Monocyte% 7.4 % (0-10); Neutrophil # 2.68 X10^3/uL (2.7-7.7); Neutrophil % 58.3 % (47-70); Platelet Count 155 K/mm3 (150-450); RBC Distribution Width CV 12.8 % (11.6-14.6); RBC Distribution Width SD 42.8 fl (35.1-43.9); Red Blood Count 5.16 M/mm3 (4.6-6.2); White Blood Count 4.6 K/mm3 (4.4-11.0)
[2018-12-31 17:22] LABS: POSITIVE COUNT NO; POSITIVE DIFFERENTIAL NO; POSITIVE MORPHOLOGY NO
[2018-12-31 17:53] LABS: ALB/GLOB Ratio 1.2 RATIO (0.9-2.4); AST(SGOT) 214 U/L (15-37); Alanine Aminotransfer ALT/SGPT 258 U/L (16-61); Albumin, Serum 4.2 g/dL (3.2-5.0); Alkaline Phosphatase 82 U/L (45-117); Anion Gap 10 (5-15); BUN 15 mg/dL (7-18); BUN/Creat Ratio 14.6 RATIO (10-20); Calcium,Total 8.4 mg/dL (8.5-10.1); Chloride 103 mmol/L (98-107); Creatinine, Serum 1.03 mg/dL (0.70-1.30); EST Glomerular Filtration Rate 84 mL/min (>60); Est Glom Filt Rate - Afr Amer 101 mL/min (>60); Estimated Creatinine Clearance 107.52 ml/min; Globulin 3.4 g/dL (2.2-4.2); Glucose 100 mg/dL (74-106); Potassium 4.1 mmol/L (3.5-5.1); Protein, Total 7.6 g/dL (6.4-8.2); Sodium Level 141 mmol/L (136-145)
[2018-12-31 18:33] LABS: Amphetamine Urine VISTA NEGATIVE (<1000 ng/mL); Barbiturate Urine VISTA NEGATIVE (< 200 ng/mL); Benzodiazepine Urine VISTA NEGATIVE (< 200 ng/mL); Cocaine Urine VISTA NEGATIVE (< 300 ng/mL); Ecstacy Urine VISTA NEGATIVE (< 500 ng/mL); Methadone Urine VISTA NEGATIVE (< 300 ng/mL); PCP Urine VISTA NEGATIVE (< 25 ng/mL); THC Urine VISTA NEGATIVE (< 50 ng/mL); Vista UDS pH Range 7
--- NOTE | 2018-12-31 18:56 | HP.PCM_ITS ---
History of Present Illness Date of Admission: 12/31/18 Chief Complaint: alcohol withdrawal The patient is a 43 year old M with no significant past medical history was admitted for alcohol withdrawal. Patient was last seen for alcohol detox back in August 2018, and states he has been clean until couple of weeks ago and his girlfriend left him and that she came up. He has been drinking about 5 bottles of vodka daily and his last drink was around 7 AM this morning. He admits to some abdominal pain but denies any nausea vomiting, fever or chills, review of systems otherwise negative. Labs and vitals reviewed. No history of DTs or withdrawal seizures. He has been admitted to be managed for acute alcohol withdrawal. CIWA score in the ED was 37. Alcohol level was 304. [] Past Medical History Allergies amoxicillin Allergy (Verified 12/31/18 16:31) Rash Penicillins Allergy (Verified 12/31/18 16:31) Rash Home Medications: Ambulatory Orders Medication Instructions Recorded NK 08/19/18 Surgical History: no surgical history Psychiatric History: Depression Lives: Alone Smoking Status: Never smoker Alcohol: Heavy Drugs: None - *Family History Maternal History Items: Diabetes, Hypertension Paternal History Items: No pertinent history Review of Systems Constitutional: Reports: Malaise. Denies: Chills, Fever, Weakness, Weight Change, Fatigue Eyes: Denies: Blurred vision HEENT: Denies: Head Aches, Sinus Congestion, Sinus Drainage Cardiovascular: Denies: Chest Pain, Palpitations Respiratory: Denies: Cough, Shortness of breath at rest, Sputum production Gastrointestinal: Denies: Abdominal Pain, Nausea, Vomiting Genitourinary: Denies: Dysuria Musculoskeletal: Denies: Joint Pain, Joint Tenderness Skin: Denies: Rash, Wounds Neurological: Denies: Numbness, Tingling, Focal weakness Psychiatric: Denies: Anxiety, Depression, Homicidal Ideations, Suicidal Ideations Hematologic/ Lymphatic: Denies: Easy Bruising, Easy Bleeding VTE Information - Inpt Only VTE Present on Admission: No VTE Pharm Prophylaxis ordered?: Yes - Physical Exam General: Alert, Oriented x3, Cooperative, No apparent distress HEENT: Atraumatic, PERRLA, EOMI, Normocephalic Oral: Moist Mucosa Neck: Supple, No JVD, Negative Carotid Bruits Lungs: Clear to auscultation, Normal air movement Cardiovascular: Regular rate, Regular Rhythm, Normal S1, Normal S2, No murmurs Abdomen: Bowel Sounds Present, Soft, Non Tender, Non-Distended, No Hepato- splenomegaly Extremities: No clubbing, No cyanosis, No edema, Capillary Refill Less than 3 Seconds Skin: No rashes, No breakdown Musculoskeletal: No Tenderness to Palpation of Joints or Extremities Lymphatic: No Cervical, Supraclavicular, or Inguinal Adenopathy Neurological: Cranial nerves II-XII grossly intact, Neuro grossly intact, Motor Exam 5/5 strength throughout Psych/Mental Status: Normal Affect, Appropriate, Alert and oriented to time, place, person, mood and affect Vital Signs Temp Pulse Resp BP Pulse Ox 98.1 F 80 16 149/95 H 96 12/31/18 16:29 12/31/18 16:29 12/31/18 16:29 12/31/18 16:29 12/31/18 16:29 Oxygen Delivery Method Room Air Weight: 226 lb Body Mass Index (BMI) 29.0 Laboratory Tests Past 24 Hrs 12/31/18 12/31/18 12/31/18 17:08 17:08 17:08 WBC 4.6 RBC 5.16 Hgb 16.4 Hct 47.5 MCV 92.1 MCH 31.8 MCHC 34.5 RDW 12.8 RDW Differential 42.8 Plt Count 155 MPV 9.0 Immature Gran % (Auto) 0.000 Neut % (Auto) 58.3 Lymph % (Auto) 30.2 [place] % (Auto) 7.4 Eos % (Auto) 3.0 Baso % (Auto) 1.1 H Absolute Neuts (auto) 2.7 Absolute Lymphs (auto) 1.39 Total Counted Not Reportable Sodium 141 Potassium 4.1 Chloride 103 Carbon Dioxide 28.0 Anion Gap 10 BUN 15 Creatinine 1.03 Estim Creat Clear Calc 107.52 Est GFR (MDRD) Af Amer 101 Est GFR (MDRD) Non-Af 84 BUN/Creatinine Ratio 14.6 Glucose 100 Calcium 8.4 L Total Bilirubin 0.80 AST 214 H ALT 258 H Alkaline Phosphatase 82 Total Protein 7.6 Albumin 4.2 Globulin 3.4 Albumin/Globulin Ratio 1.2 Urine Opiates Screen Urine Methadone Screen Ur Barbiturates Screen Ur Phencyclidine Scrn Ur Amphetamines Screen U Methamphetamin-MDMA U Benzodiazepines Scrn Urine Cocaine Screen U Cannabinoids Screen Ur Drug Screen Comment Ethyl Alcohol 304.0 H* 12/31/18 17:55 WBC RBC Hgb Hct MCV MCH MCHC RDW RDW Differential Plt Count MPV Immature Gran % (Auto) Neut % (Auto) Lymph % (Auto) [place] % (Auto) Eos % (Auto) Baso % (Auto) Absolute Neuts (auto) Absolute Lymphs (auto) Total Counted Sodium Potassium Chloride Carbon Dioxide Anion Gap BUN Creatinine Estim Creat Clear Calc Est GFR (MDRD) Af Amer Est GFR (MDRD) Non-Af BUN/Creatinine Ratio Glucose Calcium Total Bilirubin AST ALT Alkaline Phosphatase Total Protein Albumin Globulin Albumin/Globulin Ratio Urine Opiates Screen NEGATIVE Urine Methadone Screen NEGATIVE Ur Barbiturates Screen NEGATIVE Ur Phencyclidine Scrn NEGATIVE Ur Amphetamines Screen NEGATIVE U Methamphetamin-MDMA NEGATIVE U Benzodiazepines Scrn NEGATIVE Urine Cocaine Screen NEGATIVE U Cannabinoids Screen NEGATIVE Ur Drug Screen Comment Ethyl Alcohol Assessment/Plan 43-year-old male admitted for acute alcohol withdrawal. 1. Acute alcohol withdrawal * drinks 1.75L of vodka daily * admit to med surg with telemetry * start alcohol withdrawal protocl with librium * monitor CIWA score * Give multivitamin, thiamine as well as folic acid. * 2. Transaminitis. * AST is elevated at 1 4 and ALT at 258. Total bilirubin is 0.8. This likely due to alcohol abuse. Will monitor. * DVT prophylaxis: low risk. encourage ambulation Code Visit Inpatient E&M: 10577 Init Hosp L3
[2018-12-31 19:43] VITALS: BMI 29.5
[2018-12-31 20:18] LABS: Magnesium 2.1 mg/dL (1.6-2.6)
[2018-12-31 20:34] VITALS: BP 140/80; PULSE 80; RESP 16; TEMP 37.1; O2SAT 96
[2018-12-31] MEDS: Thiamine Hydrochloride 100 MG Tablet PO (20:46)
[2018-12-31] MEDS: chlordiazePOXIDE 25 MG Capsule PO (20:46)
[2018-12-31] MEDS: Folic Acid 1 MG Tablet PO (20:47)
[2018-12-31 21:56] LABS: Bedside Glucose 98 mg/dL (70-110)
[2018-12-31 23:13] VITALS: PULSE 105
[2019-01-01] VITALS (13 sets, daily range): BP systolic 124–154; BP diastolic 77–95; PULSE 55–90; RESP 16–18; TEMP 36.4–36.7; O2SAT 94–99
[2019-01-01] MEDS: chlordiazePOXIDE 25 MG Capsule PO ×4 (02:55→23:18)
[2019-01-01 06:35] LABS: Bedside Glucose 99 mg/dL (70-110)
[2019-01-01 07:07] LABS: Absolute Lymphocyte Count 1.02 X10^3/ul (0.83-4.51); Absolute Neutrophil Count 3.1 X10^3/uL (2.0-7.7); Basophil# 0.04 X10^3/uL; Basophil% 0.8 % (0-1); Eosinophil# 0.29 X10^3/uL; Eosinophils% 5.9 % (0-5); Hematocrit 46.2 % (40-54); Hemoglobin 16.1 g/dl (13.0-16.5); Lymphocyte # 1.02 X10^3/ul (4.0); Lymphocyte % 20.8 % (19-41); Mean Corp Hgb Conc 34.8 g/gl (32-36); Mean Corpuscular Hgb 31.3 pg (27.0-32.0); Mean Corpuscular Volume 89.9 fL (80-94); Mean Platelet Vol. 9.5 fl (6.2-12.0); Monocyte# 0.49 X10^3/uL; Neutrophil # 3.06 X10^3/uL (2.7-7.7); Neutrophil % 62.3 % (47-70); Platelet Count 155 K/mm3 (150-450); RBC Distribution Width CV 12.4 % (11.6-14.6); RBC Distribution Width SD 40.8 fl (35.1-43.9); Red Blood Count 5.14 M/mm3 (4.6-6.2); White Blood Count 4.9 K/mm3 (4.4-11.0)
[2019-01-01 07:08] LABS: POSITIVE COUNT NO; POSITIVE DIFFERENTIAL NO; POSITIVE MORPHOLOGY NO
[2019-01-01 07:32] LABS: ALB/GLOB Ratio 1.2 RATIO (0.9-2.4); AST(SGOT) 175 U/L (15-37); Alanine Aminotransfer ALT/SGPT 235 U/L (16-61); Albumin, Serum 3.9 g/dL (3.2-5.0); Alkaline Phosphatase 75 U/L (45-117); Anion Gap 8 (5-15); BUN 16 mg/dL (7-18); BUN/Creat Ratio 15.5 RATIO (10-20); Calcium,Total 9.4 mg/dL (8.5-10.1); Chloride 101 mmol/L (98-107); Creatinine, Serum 1.03 mg/dL (0.70-1.30); EST Glomerular Filtration Rate 84 mL/min (>60); Est Glom Filt Rate - Afr Amer 101 mL/min (>60); Estimated Creatinine Clearance 107.52 ml/min; Globulin 3.3 g/dL (2.2-4.2); Glucose 97 mg/dL (74-106); Magnesium 1.8 mg/dL (1.6-2.6); Potassium 3.9 mmol/L (3.5-5.1); Protein, Total 7.2 g/dL (6.4-8.2); Sodium Level 137 mmol/L (136-145)
[2019-01-01] MEDS: LORazepam 1 MG Tablet 2 MG PO ×2 (09:30→14:17)
[2019-01-01] MEDS: Thiamine Hydrochloride 100 MG Tablet PO (09:30)
[2019-01-01] MEDS: Multivitamins,Therapeutic Tablet 1 TABLET PO (09:30)
[2019-01-01] MEDS: Folic Acid 1 MG Tablet PO (09:30)
--- NOTE | 2019-01-01 10:03 | PN_ITS ---
Subjective: Patient seen and examined. He had an uneventful night and had no complaints. Review of systems otherwise negative. Vitals/I&O's: Vital Signs Temp Pulse Resp BP Pulse Ox 97.7 F L 81 18 134/93 H 94 01/01/19 09:32 01/01/19 09:32 01/01/19 09:32 01/01/19 09:32 01/01/19 09:32 Oxygen Delivery Method Room Air Weight: 229 lb 11.547 oz Body Mass Index (BMI) 29.5 Intake and Output for Last 24 Hours 12/30/18 12/31/18 01/01/19 23:59 23:59 23:59 Intake Total 1400 / 1400 Balance 1400 / 1399 General: Alert, Oriented x3, Cooperative, No apparent distress HEENT: Atraumatic, PERRLA, EOMI, Normocephalic Oral: Moist Mucosa Neck: Supple, No JVD, Negative Carotid Bruits Lungs: Clear to auscultation, Normal air movement Cardiovascular: Regular rate, Regular Rhythm, Normal S1, Normal S2, No murmurs Abdomen: Bowel Sounds Present, Soft, Non Tender, Non-Distended, No Hepato- splenomegaly Extremities: No clubbing, No cyanosis, No edema, Capillary Refill Less than 3 Seconds Skin: No rashes, No breakdown Musculoskeletal: No Tenderness to Palpation of Joints or Extremities Lymphatic: No Cervical, Supraclavicular, or Inguinal Adenopathy Neurological: Cranial nerves II-XII grossly intact, Neuro grossly intact, Motor Exam 5/5 strength throughout Psych/Mental Status: Normal Affect, Appropriate, Alert and oriented to time, place, person, mood and affect Laboratory Results 12/31/18 17:08: WBC 4.6, RBC 5.16, Hgb 16.4, Hct 47.5, MCV 92.1, MCH 31.8, MCHC 34.5, RDW 12.8, RDW Differential 42.8, Plt Count 155, MPV 9.0, Immature Gran % (Auto) 0.000, Neut % (Auto) 58.3, Lymph % (Auto) 30.2, [place] % (Auto) 7.4, Eos % (Auto) 3.0, Baso % (Auto) 1.1 H, Absolute Neuts (auto) 2.7, Absolute Lymphs (auto) 1.39, Total Counted Not Reportable 12/31/18 17:08: Sodium 141, Potassium 4.1, Chloride 103, Carbon Dioxide 28.0, Anion Gap 10, BUN 15, Creatinine 1.03, Estim Creat Clear Calc 107.52, Est GFR (MDRD) Af Amer 101, Est GFR (MDRD) Non-Af 84, BUN/Creatinine Ratio 14.6, Glucose 100, Calcium 8.4 L, Total Bilirubin 0.80, AST 214 H, ALT 258 H, Alkaline Phosphatase 82, Total Protein 7.6, Albumin 4.2, Globulin 3.4, Albumin/Globulin Ratio 1.2 12/31/18 17:08: Ethyl Alcohol 304.0 H* 12/31/18 17:08: Magnesium 2.1 12/31/18 17:55: Urine Opiates Screen NEGATIVE, Urine Methadone Screen NEGATIVE, Ur Barbiturates Screen NEGATIVE, Ur Phencyclidine Scrn NEGATIVE, Ur Amphetamines Screen NEGATIVE, U Methamphetamin-MDMA NEGATIVE, U Benzodiazepines Scrn NEGATIVE, Urine Cocaine Screen NEGATIVE, U Cannabinoids Screen NEGATIVE, Ur Drug Screen Comment 12/31/18 21:50: POC Glucose 98 01/01/19 06:13: WBC 4.9, RBC 5.14, Hgb 16.1, Hct 46.2, MCV 89.9, MCH 31.3, MCHC 34.8, RDW 12.4, RDW Differential 40.8, Plt Count 155, MPV 9.5, Immature Gran % (Auto) 0.200, Neut % (Auto) 62.3, Lymph % (Auto) 20.8, [place] % (Auto) 10.0, Eos % (Auto) 5.9 H, Baso % (Auto) 0.8, Absolute Neuts (auto) 3.1, Absolute Lymphs (auto) 1.02, Total Counted Not Reportable 01/01/19 06:13: Sodium 137, Potassium 3.9, Chloride 101, Carbon Dioxide 28.0, Anion Gap 8, BUN 16, Creatinine 1.03, Estim Creat Clear Calc 107.52, Est GFR (MDRD) Af Amer 101, Est GFR (MDRD) Non-Af 84, BUN/Creatinine Ratio 15.5, Glucose 97, Calcium 9.4, Magnesium 1.8, Total Bilirubin 1.40 H, AST 175 H, ALT 235 H, Alkaline Phosphatase 75, Total Protein 7.2, Albumin 3.9, Globulin 3.3, Albumin/Globulin Ratio 1.2 01/01/19 06:28: POC Glucose 99 Current Medications Chlordiazepoxide (Librium) 50 mg PO Q6H [facility]; Taper Stop: 01/03/19 22:59 Last Admin: 01/01/19 09:30 Dose: 50 mg Dextrose (D50w Syringe) 0 gm IV X1 PRN; Protocol PRN Reason: Hypoglycemia [facility]: 01/02/19 08:01 Last Admin: 01/01/19 09:30 Dose: 1 mg Glucagon () 1 mg IM .X1 PRN PRN Reason: Hypoglycemia Lorazepam (Ativan) 2 mg PO Q2H PRN PRN; Protocol PRN Reason: CIWA score > 8 but <15 Last Admin: 01/01/19 09:30 Dose: 2 mg Lorazepam (Ativan) 2 mg PO UD PRN; Protocol PRN Reason: CIWA score >/=15. Lorazepam (Ativan) 2 mg IV Q2H PRN PRN; Protocol PRN Reason: CIWA score > 8 but <15 Lorazepam (Ativan) 2 mg IV UD PRN; Protocol PRN Reason: CIWA score >/=15. Multivitamins ([facility]ivitamin) [facility] Last Admin: 01/01/19 09:30 Dose: 1 tablet Thiamine HCl (Vitamin B1) [facility] Stop: 01/02/19 08:01 Last Admin: 01/01/19 09:30 Dose: 100 mg Medical Necessity - Tobacco Use Smoking Status: Never smoker Tobacco Use: Non-smoker Assessment/Plan 43-year-old male admitted for acute alcohol withdrawal. 1. Acute alcohol withdrawal * CIWA score is 9 this morning * on alcohol withdrawal protocol with ativan * monitor CIWA score * on multivites, thiamine and folic acid * admit to med surg with telemetry * start alcohol withdrawal protocl with librium * monitor CIWA score * Give multivitamin, thiamine as well as folic acid. * 2. Elevated transaminases * AST/ALT trended down to 175/235 * stable. * DVT prophylaxis: low risk. encourage ambulation Code Visit Inpatient E&M: 01411 Subs Hosp L2
--- NOTE | 2019-01-01 15:56 | CHAPLAIN ---
Type of Pastoral Visit _x__ Initial Visit ___ Follow-up Visit ___ On-call Visit ___ General Patient Visit ___ Spiritual Assessment ___ Family Conference ___ Bereavement ___ Rapid Response ___ Code Blue ___ Other (describe below) Pastoral Care Referral From _x__ Patient ___ Family ___ Nurse ___ Physician ___ Pit Operator ___ Frame Builder ___ Other (describe below) Sacrament/Intervention ___ Active listening ___ Anointing ___ Alevism ___ Bereavement ___ Communion ___ Samantha exploration ___ ___ Life review ___ Prayer ___ Reconciliation ___ Sacrament of Sick _x__ Supportive presence ___ Wedding ___ Other (describe below) Pastoral Comments patient requests a visit tomorrow as he is trying to get some sleep at this time; this business excellence manager has previously given spiritual support to this patient on his last admission in August
[2019-01-01] MEDS: Zolpidem Tartrate 5 MG Tablet PO (23:53)
[2019-01-02] VITALS (12 sets, daily range): BP systolic 109–144; BP diastolic 67–87; PULSE 54–96; RESP 16–18; TEMP 36.4–36.7; O2SAT 97
[2019-01-02] MEDS: 0.9% NaCl Peripheral Flush Adult/Peds IV (06:29)
[2019-01-02] MEDS: chlordiazePOXIDE 25 MG Capsule PO ×3 (06:29→22:14)
[2019-01-02] MEDS: Thiamine Hydrochloride 100 MG Tablet PO (07:50)
[2019-01-02] MEDS: Folic Acid 1 MG Tablet PO (07:50)
[2019-01-02] MEDS: Multivitamins,Therapeutic Tablet 1 TABLET PO (07:50)
--- NOTE | 2019-01-02 10:03 | PN_ITS ---
Subjective: Patient seen and examined. He has no complaints. Review of systems otherwise negative. Labs and vitals reviewed. Vitals/I&O's: Vital Signs Temp Pulse Resp BP Pulse Ox 97.5 F L 96 18 124/79 H 98 01/02/19 09:50 01/02/19 09:50 01/02/19 09:50 01/02/19 09:50 01/01/19 23:17 Oxygen Delivery Method Room Air Weight: 229 lb 11.547 oz Body Mass Index (BMI) 29.5 Intake and Output for Last 24 Hours 12/31/18 01/01/19 01/02/19 23:59 23:59 23:59 Intake Total 1999 600 / 600 Balance 1999 600 / 600 General: Alert, Oriented x3, Cooperative, No apparent distress HEENT: Atraumatic, PERRLA, EOMI, Normocephalic Oral: Moist Mucosa Neck: Supple, No JVD, Negative Carotid Bruits Lungs: Clear to auscultation, Normal air movement, No rhonchi, No wheeze, No rales, - - on 3L of oxygen, which is chronic Cardiovascular: Regular rate, Regular Rhythm, Normal S1, Normal S2, No murmurs Abdomen: Bowel Sounds Present, Soft, Non Tender, Non-Distended, No Hepato- splenomegaly, Passing Flatus Extremities: No clubbing, No cyanosis, No edema, Capillary Refill Less than 3 Seconds Skin: No rashes, No breakdown Musculoskeletal: No Tenderness to Palpation of Joints or Extremities Lymphatic: No Cervical, Supraclavicular, or Inguinal Adenopathy Neurological: Cranial nerves II-XII grossly intact, Neuro grossly intact, Motor Exam 5/5 strength throughout Psych/Mental Status: Normal Affect, Appropriate, Alert and oriented to time, place, person, mood and affect Current Medications Chlordiazepoxide (Librium) 50 mg PO Q8H [facility]; Taper Stop: 01/03/19 22:59 Last Admin: 01/02/19 06:29 Dose: 50 mg Dextrose (D50w Syringe) 0 gm IV X1 PRN; Protocol PRN Reason: Hypoglycemia Glucagon () 1 mg IM .X1 PRN PRN Reason: Hypoglycemia Lorazepam (Ativan) 2 mg PO Q2H PRN PRN; Protocol PRN Reason: CIWA score > 8 but <15 Last Admin: 01/01/19 14:17 Dose: 2 mg Lorazepam (Ativan) 2 mg PO UD PRN; Protocol PRN Reason: CIWA score >/=15. Lorazepam (Ativan) 2 mg IV Q2H PRN PRN; Protocol PRN Reason: CIWA score > 8 but <15 Lorazepam (Ativan) 2 mg IV UD PRN; Protocol PRN Reason: CIWA score >/=15. Multivitamins (Multivitamin) 1 tablet PO DAILYCM [facility] Last Admin: 01/02/19 07:50 Dose: 1 tablet Sodium Chloride () 5 - 15 ml IV UD PRN PRN Reason: SALINE FLUSH Last Admin: 01/02/19 06:29 Dose: 10 ml Zolpidem Tartrate (Ambien (Generic)) 5 mg PO QHS PRN PRN PRN Reason: INSOMNIA Last Admin: 01/01/19 23:53 Dose: 5 mg Medical Necessity - Tobacco Use Smoking Status: Never smoker Tobacco Use: Non-smoker Assessment/Plan 43-year-old male admitted for acute alcohol withdrawal. 1. Acute alcohol withdrawal * CIWA score is 2 this morning * on alcohol withdrawal protocol with ativan * monitor CIWA score * on multivites, thiamine and folic acid * * 2. Elevated transaminases * AST/ALT trended down to 175/235 * stable. * DVT prophylaxis: low risk. encourage ambulation For DC tomorrow. Code Visit Inpatient E&M: 90981 Subs Hosp L2
--- NOTE | 2019-01-02 12:15 | NEWVISION ---
Patient has pending appointment at [facility] for mental / AOD services. Patient has completed phone screen and awaiting for a therapist to be assigned to him to begin services tentatively the week of January 06, 2019. This agency is affiliated with patient's religion and located on the same campus.
--- NOTE | 2019-01-02 17:10 | CHAPLAIN ---
Type of Pastoral Visit _x__ Initial Visit ___ Follow-up Visit ___ On-call Visit ___ General Patient Visit ___ Spiritual Assessment ___ Family Conference ___ Bereavement ___ Rapid Response ___ Code Blue ___ Other (describe below) Pastoral Care Referral From _x__ Patient _x__ Family ___ Nurse ___ Physician ___ Newswriter ___ Certified Medical Records Coder ___ Other (describe below) Sacrament/Intervention _x__ Active listening ___ Anointing ___ Alevism ___ Bereavement ___ Communion _x__ Samantha exploration ___ _x__ Life review _x__ Prayer ___ Reconciliation ___ Sacrament of Sick _x__ Supportive presence ___ Wedding ___ Other (describe below) Pastoral Comments father of patient is also present and contributes to conversation and support given to patient; pt is a devout [employer] and seeks spiritual help
[2019-01-03 04:57] VITALS: PULSE 55
[2019-01-03 05:43] VITALS: BP 119/65; PULSE 78; RESP 16; TEMP 36.6
[2019-01-03] MEDS: 0.9% NaCl Peripheral Flush Adult/Peds IV (05:48)
--- NOTE | 2019-01-03 08:56 | PCM.DC ---
You will use the following diet at home:: No restrictions Your food should be the consistency of: Regular Your liquids should be the consistency of: Regular/Thin Discharge Activity: Return to Normal Activity Weight Bearing Status: Weight bearing as tolerated Call your doctor if you observe: Shortness of breath, Dizziness Instructions: Understanding Alcoholism, Alcoholism: Getting Help Additional Instructions: follow up with [email or web address] next week as set up by Tyler Luther, for help with alcohol addiction Allergies/Adverse Reactions: Allergies amoxicillin Allergy (Verified 12/31/18 16:31) Rash Penicillins Allergy (Verified 12/31/18 16:31) Rash Medications to take at Discharge NK 08/19/18 Primary Care Physician: Mekhi Lynn MD [Primary Care Provider] - Please follow up with your Primary Care Physician in: one week Test Results: Test results from this visit will be discussed in further detail at your follow-up appointment, if applicable. Proposed Discharge Date: 01/03/19
--- NOTE | 2019-01-03 08:58 | PCM.DC.SUM ---
Discharge Date and Diagnosis Date of Admission: 12/31/18 Date of Discharge: 01/03/19 - Primary Discharge Diagnosis acute alcohol withdrawal Hospital Course and Treatment Operations: None Procedures: None Summary of Care Provided: The patient is a 43 year old M with no significant past medical history was admitted for alcohol withdrawal on 12/31/18. Patient was last seen for alcohol detox back in August 2018, and states he has been clean until couple of weeks ago and his girlfriend left him and that she came up. He has been drinking about 5 bottles of vodka daily and his last drink was around 7 AM of morning of admission. He admitted to some abdominal pain but denied any nausea vomiting, fever or chills, review of systems otherwise negative. Labs and vitals reviewed. No history of DTs or withdrawal seizures. He was admitted to be managed for acute alcohol withdrawal. CIWA score in the ED was 37. Alcohol level was 304. He was started on alcohol withdrawal protocol with heparin. Patient underwent a 3-day acute alcohol detox program which she successfully completed. He remained stable and was discharged home on 01/03/2019. He is to follow-up with [facility] on outpatient basis for help with alcohol abuse. Patient seen and examined prior to discharge. He had no complaints and felt well. Review of systems otherwise negative. Labs and vitals reviewed. Home medication reviewed and reconciled. o/e: Vital Signs Height 6 ft 2 in Weight: 229 lb 11.547 oz Weight in Pounds 229.7 lbs Pulse Ox 97 Temperature 98.5 F Pulse Rate 97 Respiratory Rate 18 Blood Pressure 106/65 Blood Pressure Position Sitting General: Alert, Oriented x3, Cooperative, No apparent distress HEENT: Atraumatic, PERRLA, EOMI, Normocephalic Oral: Moist Mucosa Neck: Supple, No JVD, Negative Carotid Bruits Lungs: Clear to auscultation, Normal air movement, No rhonchi, No wheeze, No rales, Cardiovascular: Regular rate, Regular Rhythm, Normal S1, Normal S2, No murmurs Abdomen: Bowel Sounds Present, Soft, Non Tender, Non-Distended, No Hepato-splenomegaly Extremities: No clubbing, No cyanosis, No edema, Capillary Refill Less than 3 Seconds Skin: No rashes, No breakdown Musculoskeletal: No Tenderness to Palpation of Joints or Extremities Lymphatic: No Cervical, Supraclavicular, or Inguinal Adenopathy Neurological: Cranial nerves II-XII grossly intact, Neuro grossly intact, Motor Exam 5/5 strength throughout Psych/Mental Status: Normal Affect, Appropriate, Alert and oriented to time, place, person, mood and affect Plan as above. He is also to follow-up with his primary care doctor in 1 week. - Physical Exam Vital Signs Temp Pulse Resp BP Pulse Ox 97.9 F 78 16 119/65 97 01/03/19 05:43 01/03/19 05:43 01/03/19 05:43 01/03/19 05:43 01/02/19 19:25 Oxygen Delivery Method Room Air Weight: 229 lb 11.547 oz Body Mass Index (BMI) 29.5 Intake and Output for Last 24 Hours 01/01/19 01/02/19 01/03/19 23:59 23:59 23:59 Intake Total 1999 600 / 600 Balance 1999 600 / 600 Discharge Diet: No Restrictions Discharge Activity: Return to Normal Activity Weight Bearing Status: Weight bearing as tolerated Call your doctor if you observe: Shortness of breath, Dizziness Home Medications: Medications to take at Discharge NK 08/19/18 Primary Care Physician: Mekhi Lynn MD [Primary Care Provider] - Please follow up with your Primary Care Physician in: one week Patient Instructions: Understanding Alcoholism, Alcoholism: Getting Help Disposition: Home Minutes spent on discharge:: 35 Patient Condition:: Stable Medical Necessity - Tobacco Use Smoking Status: Never smoker Tobacco Use: Non-smoker Meaningful Use Info Meaningful Use Diagnoses (Choose all that apply): None applicable Code Visit Inpatient E&M: 68694 Disch Hosp
[2019-01-03 09:50] VITALS: BP 106/65; PULSE 97; RESP 18; TEMP 36.9
[2019-01-03] MEDS: Multivitamins,Therapeutic Tablet 1 TABLET PO (09:54)
[2019-01-03] MEDS: chlordiazePOXIDE 25 MG Capsule PO (09:54)
== END 2019-01-03 11:00 | disposition home or self-care (01) | DRG 897 ==
LOC: ED 17:07 → MS3 19:07
PROVIDERS: Admitting Provider Student in an Organized Health Care Education/Training Program; Emergency Provider Emergency Medicine; Family Provider Family Medicine; PCP Family Medicine; Referring Provider Student in an Organized Health Care Education/Training Program; Visit Provider Student in an Organized Health Care Education/Training Program
DX: F10.239 Alcohol dependence with withdrawal, unspecified (principal); Y90.8 Blood alcohol level of 240 mg/100 ml or more; R74.0 Nonspecific elevation of levels of transaminase and lactic acid dehydrogenase [LDH]
CPT/HCPCS: 36415; 80053; 80307; 80320; 82962; 83735; 85025; 99284; A4216; G0480

== ENCOUNTER 2019-02-03 13:55 | Inpatient (IN) | payer BC, SELFPAY ==
[2018-12-31 19:43] VITALS: BMI 29.5
[2019-02-03 14:12] VITALS: BP 157/95; PULSE 79; RESP 16; TEMP 36.9; O2SAT 93
[2019-02-03 14:15] VITALS: BMI 28.3
[2019-02-03 14:17] VITALS: BP 157/95; PULSE 79; RESP 16; TEMP 36.9; O2SAT 93
[2019-02-03 14:19] VITALS: BMI 28.3
--- NOTE | 2019-02-03 14:32 | HP.PCM_ITS ---
Problem List (1) Alcohol withdrawal Status: Acute Qualifiers: Complication of substance-induced condition: uncomplicated Qualified Code(s): F10.230 - Alcohol dependence with withdrawal, uncomplicated History of Present Illness Date of Admission: 02/03/19 Chief Complaint: nausea The patient is a 43 year old M who is seeking treatment for acute alcohol withdrawal. Patient's last drink was about 45 hours earlier. Patient has been drinking 1.75 L of vodka per day for the past week to week and a half. Patient was admitted to [facility] in December for alcohol withdrawal and was treated with Librium. He was then discharged to [facility]. Patient was sober for about 4 weeks only to resumed drinking after a break-up with a girlfriend. Since his last drink, he has been having nausea, and vomiting x1, headaches. Presented with the symptoms to the [facility] coordinator for requesting inpatient treatment. [] Past Medical History Allergies amoxicillin Allergy (Verified 12/31/18 16:31) Rash Penicillins Allergy (Verified 12/31/18 16:31) Rash Home Medications: Ambulatory Orders Medication Instructions Recorded NK 08/19/18 Surgical History: no surgical history Psychiatric History: Depression Smoking Status: Never smoker Tobacco Use: Non-smoker Alcohol: Heavy Drugs: None - *Family History Maternal History Items: Diabetes, Hypertension Paternal History Items: No pertinent history Review of Systems Constitutional: Denies: Anorexia, Chills, Fever Eyes: Denies: Blurred vision, Double vision HEENT: Denies: Head Aches, Sinus Congestion, Sinus Drainage Cardiovascular: Denies: Chest Pain, Palpitations Respiratory: Denies: Cough, Shortness of breath at rest, Sputum production Gastrointestinal: Reports: Nausea, Vomiting. Denies: Abdominal Pain Genitourinary: Denies: Dysuria Musculoskeletal: Denies: Joint Pain, Joint Tenderness Skin: Denies: Rash, Wounds Neurological: Denies: Numbness, Tingling, Focal weakness Psychiatric: Denies: Anxiety, Depression Endocrine: Denies: Change in Body Habitus, Heat/ Cold Intolerance Hematologic/ Lymphatic: Denies: Easy Bruising, Easy Bleeding, Hx of blood clot Comment: No auditory or visual hallucinations. Patient states that he did have a very vivid dream last night. A 10 point review of systems were negative except as mentioned in the history of present illness and the other review of systems. VTE Information - Inpt Only VTE Present on Admission: No VTE Mechan Device Prophylaxis: None VTE Pharm Prophylaxis ordered?: No Patient Problems: Active and Suspected Problems Alcohol withdrawal (Acute) - Physical Exam General: Alert, No apparent distress, Well developed, Well nourished HEENT: Atraumatic, Normocephalic Oral: Moist Mucosa, No Gingival or Mucosal Lesions/ Ulcerations Neck: No Nodes, Thyroid Normal Size and Texture Lungs: Clear to auscultation, Normal air movement, No rhonchi, No wheeze, No rales Cardiovascular: Regular rate, Regular Rhythm, Normal S1, Normal S2, No murmurs Abdomen: Bowel Sounds Present, Soft, Non Tender, Non-Distended, No Hepato- splenomegaly Extremities: No edema, No Calf Tenderness Skin: No rashes, No breakdown Musculoskeletal: No Tenderness to Palpation of Joints or Extremities, No Muscle Wasting Lymphatic: No Cervical, Supraclavicular, or Inguinal Adenopathy, Cervical Adenopathy Psych/Mental Status: Appropriate, Anxious Vital Signs Temp Pulse Resp BP Pulse Ox 36.9 C 79 16 157/95 H 93 02/03/19 14:17 02/03/19 14:17 02/03/19 14:17 02/03/19 14:17 02/03/19 14:17 Oxygen Delivery Method Room Air Weight: 100.244 kg Body Mass Index (BMI) 28.3 Assessment/Plan All Active Problems Alcohol withdrawal (Acute) 1. Acute alcohol withdrawal * The CIWA score I calculated was 11. By [facility] of 28. * Medication is optional at this time. We will initiate Librium taper. Additionally patient will have other medications to help with somatic complaints. Explained the patient that his length of stay may range from 2 to for even longer days depending on his symptomatology from his alcohol withdrawal. * Patient will work with [facility] to coordinate a program upon discharge. Patient is preferring an inpatient program. 2. VTE prophylaxis: Not indicated as patient is low risk at this time. Code Visit Inpatient E&M: 88250 Init Hosp L2
[2019-02-03 14:39] VITALS: BP 157/95; PULSE 79; RESP 16; TEMP 36.9
[2019-02-03 14:51] LABS: Bedside Glucose 113 mg/dL (70-110)
[2019-02-03] MEDS: chlordiazePOXIDE 25 MG Capsule 50 MG PO ×2 (14:53→21:31)
[2019-02-03] MEDS: Ibuprofen 600 MG Tablet PO (14:53)
[2019-02-03] MEDS: hydrOXYzine PAM 25 MG Capsule 50 MG PO (14:53)
[2019-02-03 15:08] LABS: Amphetamine Urine VISTA NEGATIVE (<1000 ng/mL); Barbiturate Urine VISTA NEGATIVE (< 200 ng/mL); Benzodiazepine Urine VISTA NEGATIVE (< 200 ng/mL); Cocaine Urine VISTA NEGATIVE (< 300 ng/mL); Ecstacy Urine VISTA NEGATIVE (< 500 ng/mL); Methadone Urine VISTA NEGATIVE (< 300 ng/mL); PCP Urine VISTA NEGATIVE (< 25 ng/mL); THC Urine VISTA NEGATIVE (< 50 ng/mL); Vista UDS pH Range 7
[2019-02-03 15:26] LABS: ALB/GLOB Ratio 1.4 RATIO (0.9-2.4); AST(SGOT) 69 U/L (15-37); Alanine Aminotransfer ALT/SGPT 79 U/L (16-61); Albumin, Serum 4.1 g/dL (3.2-5.0); Alkaline Phosphatase 63 U/L (45-117); Anion Gap 10 (5-15); BUN 14 mg/dL (7-18); BUN/Creat Ratio 14.4 RATIO (10-20); Calcium,Total 8.2 mg/dL (8.5-10.1); Chloride 103 mmol/L (98-107); Creatinine, Serum 0.97 mg/dL (0.70-1.30); EST Glomerular Filtration Rate 90 mL/min (>60); Est Glom Filt Rate - Afr Amer 108 mL/min (>60); Estimated Creatinine Clearance 114.17 ml/min; Globulin 2.9 g/dL (2.2-4.2); Glucose 106 mg/dL (74-106); Potassium 3.9 mmol/L (3.5-5.1); Sodium Level 142 mmol/L (136-145)
[2019-02-03 17:14] VITALS: BP 151/95; PULSE 65; RESP 16; TEMP 36.5; O2SAT 96
[2019-02-03] MEDS: traZODone 50 MG Tablet PO (21:31)
[2019-02-03 21:32] VITALS: BP 141/81; PULSE 92; RESP 18; TEMP 37; O2SAT 94
[2019-02-03 21:37] VITALS: BP 141/81; PULSE 92; RESP 18; TEMP 37
[2019-02-04] VITALS (10 sets, daily range): BP systolic 121–161; BP diastolic 61–95; PULSE 65–79; RESP 18; TEMP 36.7–36.9; O2SAT 95–99
[2019-02-04] MEDS: chlordiazePOXIDE 25 MG Capsule 50 MG PO ×3 (03:11→17:24)
[2019-02-04] MEDS: Thiamine Hydrochloride 100 MG Tablet PO (08:48)
[2019-02-04] MEDS: Multivitamins,Therapeutic Tablet 1 TABLET PO (08:48)
[2019-02-04] MEDS: Folic Acid 1 MG Tablet PO (08:48)
--- NOTE | 2019-02-04 09:53 | PCM.PN.HOSP ---
Patient Problems: Active and Suspected Problems Alcohol withdrawal (Acute) Subjective: Patient seen and examined. Patient complains of tremors. He feels improved. No diarrhea. Vitals/I&O's: Vital Signs Temp Pulse Resp BP Pulse Ox 98.1 F 69 18 137/81 H 96 02/04/19 08:46 02/04/19 08:46 02/04/19 08:46 02/04/19 08:46 02/04/19 08:44 Oxygen Delivery Method Room Air Weight: 100.244 kg Body Mass Index (BMI) 28.3 Intake and Output for Last 24 Hours 02/02/19 02/03/19 02/04/19 23:59 23:59 23:59 Intake Total 800 / 1100 300 / 300 Balance 800 / 1100 300 / 300 General: Alert, Oriented x3, Cooperative, No apparent distress HEENT: Atraumatic, PERRLA, EOMI, Normocephalic Oral: Moist Mucosa Neck: Supple Lungs: Clear to auscultation, Normal air movement Cardiovascular: Regular rate, Regular Rhythm, Normal S1, Normal S2, No murmurs Abdomen: Bowel Sounds Present, Soft, Non Tender, Non-Distended, No Hepato-splenomegaly Extremities: No edema Skin: No rashes, No breakdown Musculoskeletal: No Tenderness to Palpation of Joints or Extremities Lymphatic: No Cervical, Supraclavicular, or Inguinal Adenopathy Neurological: Cranial nerves II-XII grossly intact, Neuro grossly intact Psych/Mental Status: Normal Affect, Appropriate Laboratory Results 02/03/19 14:46: POC Glucose 113 H 02/03/19 14:50: Urine Opiates Screen NEGATIVE, Urine Methadone Screen NEGATIVE, Ur Barbiturates Screen NEGATIVE, Ur Phencyclidine Scrn NEGATIVE, Ur Amphetamines Screen NEGATIVE, U Methamphetamin-MDMA NEGATIVE, U Benzodiazepines Scrn NEGATIVE, Urine Cocaine Screen NEGATIVE, U Cannabinoids Screen NEGATIVE, Ur Drug Screen Comment 02/03/19 14:58: Sodium 142, Potassium 3.9, Chloride 103, Carbon Dioxide 29.0, Anion Gap 10, BUN 14, Creatinine 0.97, Estim Creat Clear Calc 114.17, Est GFR (MDRD) Af Amer 108, Est GFR (MDRD) Non-Af 90, BUN/Creatinine Ratio 14.4, Glucose 106, Calcium 8.2 L, Total Bilirubin 0.80, AST 69 H, ALT 79 H, Alkaline Phosphatase 63, Total Protein 7.0, Albumin 4.1, Globulin 2.9, Albumin/Globulin Ratio 1.4 Current Medications Acetaminophen (Tylenol) 500 mg PO Q4H PRN PRN PRN Reason: Temp > 100.4 F Chlordiazepoxide (Librium) 50 mg PO Q8H [facility]; Taper Stop: 02/06/19 16:59 Last Admin: 02/04/19 08:47 Dose: 50 mg Documented by: Dicyclomine HCl (Bentyl) 20 mg PO Q6H PRN PRN PRN Reason: abdominal discomfort Folic [facility] ([facility]) [facility] Stop: 02/06/19 08:01 Last Admin: 02/04/19 08:48 Dose: 1 mg Documented by: Hydroxyzine Pamoate (Vistaril Pamoate Capsule) 50 mg PO Q6H PRN PRN PRN Reason: Mild Anxiety (score 1/3) Last Admin: 02/03/19 14:53 Dose: 50 mg Documented by: Ibuprofen (Motrin) 600 mg PO Q8H PRN PRN PRN Reason: Mild-Moderate Pain (1-5/10) Last Admin: 02/03/19 14:53 Dose: 600 mg Documented by: Lorazepam (Ativan) 2 mg IV X1 PRN PRN Reason: Seizure Methocarbamol (Methocarbamol) 750 mg PO Q6H PRN PRN PRN Reason: Muscle Aches Multivitamins ([facility]itamin) [facility] Last Admin: 02/04/19 08:48 Dose: 1 tablet Documented by: Ondansetron HCl (Zofran Odt) 4 mg PO Q6H PRN PRN PRN Reason: NAUSEA Sodium Chloride () 5 - 15 ml IV UD PRN PRN Reason: SALINE FLUSH Thiamine HCl (Vitamin B1) [facility] Stop: 02/06/19 08:01 Last Admin: 02/04/19 08:48 Dose: 100 mg Documented by: Trazodone HCl (Desyrel) 50 mg PO QHS [facility] Last Admin: 02/03/19 21:31 Dose: 50 mg Documented by: Medical Necessity - Tobacco Use Smoking Status: Never smoker Tobacco Use: Non-smoker Assessment/Plan All Active Problems Alcohol withdrawal (Acute) 1. Acute alcohol withdrawal, improving, continue to [facility] protocol 2. DVT Prophylaxis with early ambulation Code Visit Inpatient E&M: 62065 Subs Hosp L2
--- NOTE | 2019-02-04 14:35 | CHAPLAIN ---
Type of Pastoral Visit _x__ Initial Visit ___ Follow-up Visit ___ On-call Visit ___ General Patient Visit ___ Spiritual Assessment ___ Family Conference ___ Bereavement ___ Rapid Response ___ Code Blue ___ Other (describe below) Pastoral Care Referral From _x__ Patient ___ Family ___ Nurse ___ Physician ___ Maintenance Data Analyst ___ Tooth Cutter Clutch ___ Other (describe below) Sacrament/Intervention _x__ Active listening ___ Anointing ___ Worship ___ Bereavement ___ Communion _x__ Samantha exploration ___ _x__ Life review _x__ Prayer ___ Reconciliation ___ Sacrament of Sick _x__ Supportive presence ___ Wedding ___ Other (describe below) Pastoral Comments patient is talkative and seeks spiritual care
[2019-02-05] MEDS: chlordiazePOXIDE 25 MG Capsule 50 MG PO ×3 (01:06→10:33)
[2019-02-05 01:09] VITALS: BP 124/81; PULSE 60; RESP 18; TEMP 36.6
--- NOTE | 2019-02-05 09:34 | PN_ITS ---
Patient Problems: Active and Suspected Problems Alcohol withdrawal (Acute) Vitals/I&O's: Vital Signs Temp Pulse Resp BP Pulse Ox 97.9 F 60 18 124/81 H 95 02/05/19 01:09 02/05/19 01:09 02/05/19 01:09 02/05/19 01:09 02/04/19 20:17 Oxygen Delivery Method Room Air Weight: 100.244 kg Body Mass Index (BMI) 28.3 Intake and Output for Last 24 Hours 02/03/19 02/04/19 02/05/19 23:59 23:59 23:59 Intake Total 800 / 1100 660 / 660 Balance 800 / 1100 660 / 660 Current Medications Acetaminophen (Tylenol) 500 mg PO Q4H PRN PRN PRN Reason: Temp > 100.4 F Chlordiazepoxide (Librium) 50 mg PO Q8H [facility]; Taper Stop: 02/06/19 16:59 Last Admin: 02/05/19 01:06 Dose: 50 mg Documented by: Dicyclomine HCl (Bentyl) 20 mg PO Q6H PRN PRN PRN Reason: abdominal discomfort Folic Acid (Folic Acid) [facility] Stop: 02/06/19 08:01 Last Admin: 02/04/19 08:48 Dose: 1 mg Documented by: Hydroxyzine Pamoate (Vistaril Pamoate Capsule) 50 mg PO Q6H PRN PRN PRN Reason: Mild Anxiety (score 1/3) Last Admin: 02/03/19 14:53 Dose: 50 mg Documented by: Ibuprofen (Motrin) 600 mg PO Q8H PRN PRN PRN Reason: Mild-Moderate Pain (1-5/10) Last Admin: 02/03/19 14:53 Dose: 600 mg Documented by: Lorazepam (Ativan) 2 mg IV X1 PRN PRN Reason: Seizure Methocarbamol (Methocarbamol) 750 mg PO Q6H PRN PRN PRN Reason: Muscle Aches Multivitamins (Multivitamin) [facility] Last Admin: 02/04/19 08:48 Dose: 1 tablet Documented by: Ondansetron HCl (Zofran Odt) 4 mg PO Q6H PRN PRN PRN Reason: NAUSEA Sodium Chloride () 5 - 15 ml IV UD PRN PRN Reason: SALINE FLUSH Thiamine HCl (Vitamin B1) 100 mg PO DAILYCM [facility] Stop: 02/06/19 08:01 Last Admin: 02/04/19 08:48 Dose: 100 mg Documented by: Trazodone HCl (Desyrel) 50 mg PO QHS [facility] Last Admin: 02/05/19 01:07 Dose: Not Given Documented by: Medical Necessity - Tobacco Use Smoking Status: Never smoker Tobacco Use: Non-smoker Assessment/Plan All Active Problems Alcohol withdrawal (Acute)
[2019-02-05] MEDS: Folic Acid 1 MG Tablet PO (09:54)
[2019-02-05] MEDS: Thiamine Hydrochloride 100 MG Tablet PO (09:54)
[2019-02-05] MEDS: Multivitamins,Therapeutic Tablet 1 TABLET PO (09:54)
[2019-02-05 09:56] VITALS: BP 169/108; PULSE 73; RESP 18; TEMP 36.7
--- NOTE | 2019-02-05 11:22 | DCINST_ITS ---
- Discharge Diagnoses Current Active Problems: Current Active and Chronic Problems Alcohol withdrawal (Acute) Reason(s) for Visit for Discharge Instructions: Alcohol withdrawal You will use the following diet at home:: No restrictions, Regular Your food should be the consistency of: Regular Your liquids should be the consistency of: Regular/Thin Discharge Activity: Return to Normal Activity Additional Instructions: You are strongly advised to stop drinking alcohol. Follow-up with your outpatient program as scheduled. Follow-up with your primary care doctor within 1 to 2 weeks. Allergies/Adverse Reactions: Allergies amoxicillin Allergy (Verified 12/31/18 16:31) Rash Penicillins Allergy (Verified 12/31/18 16:31) Rash Medications to take at Discharge NK 08/19/18 Primary Care Physician: Mekhi Lynn MD [Primary Care Provider] - Please follow up with your Primary Care Physician in: within 1-2 weeks Test Results: Test results from this visit will be discussed in further detail at your follow- up appointment, if applicable. Proposed Discharge Date: 02/05/19
--- NOTE | 2019-02-05 11:23 | DS.PCM_ITS ---
Discharge Date and Diagnosis Date of Admission: 02/03/19 Date of Discharge: 02/05/19 - Primary Discharge Diagnosis Active and Suspected Problems Alcohol withdrawal (Acute) Hospital Course and Treatment None Operations: None Procedures: None Summary of Care Provided: The patient is a 43 year old M with past medical history of alcohol use disorder, admits to drinking 1.75 L of vodka every day. He admits to having been sober for only 4 weeks, resumed drinking after break-up with his girlfriend. He was admitted for medical stabilization and [facility] protocol. Patient continued to improve. Post discharge his plan is to follow-up with the [facility]. Subjective: The day of discharge, patient had no new complaints. He felt improved. He was not requiring more PRN Librium. He will follow-up with [facility]. Objective: Physical exam: PHYSICAL EXAM: General: Alert, Cooperative, off oxygen, appeared anxious HEENT: Atraumatic, PERRLA, EOMI, Normocephalic Oral: Moist Mucosa Neck: Supple Lungs: Normal air movement, Diminished, - - Lots of transmitted sounds Cardiovascular: Regular rate, Regular Rhythm, Normal S1, Normal S2, No murmurs Abdomen: Bowel Sounds Present, Soft, Non Tender, Non-Distended, Obese Extremities: Edema - Generalized edema, +4, Nish wrap to the left knee Skin: No rashes Musculoskeletal: No Tenderness to Palpation of Joints or Extremities Lymphatic: No Cervical, Supraclavicular, or Inguinal Adenopathy Neurological: Cranial nerves II-XII grossly intact, Neuro grossly intact Psych/Mental Status: Normal Affect, Appropriate - Physical Exam Vital Signs Temp Pulse Resp BP Pulse Ox 98.1 F 73 18 169/108 H 95 02/05/19 09:56 02/05/19 09:56 02/05/19 09:56 02/05/19 09:56 02/04/19 20:17 Oxygen Delivery Method Room Air Weight: 100.244 kg Body Mass Index (BMI) 28.3 Intake and Output for Last 24 Hours 02/03/19 02/04/19 02/05/19 23:59 23:59 23:59 Intake Total 800 / 1100 660 / 660 Balance 800 / 1100 660 / 660 Discharge Diet: No Restrictions Discharge Activity: Return to Normal Activity Home Medications: Medications to take at Discharge NK 01/07/19 Primary Care Physician: Mekhi Lynn MD [Primary Care Provider] - Please follow up with your Primary Care Physician in: within 1-2 weeks Disposition: Home Minutes spent on discharge:: 35 Patient Condition:: Stable Medical Necessity - Tobacco Use Smoking Status: Never smoker Tobacco Use: Non-smoker Meaningful Use Info Meaningful Use Diagnoses (Choose all that apply): None applicable Code Visit Inpatient E&M: 77632 Disch Hosp
== END 2019-02-05 11:48 | disposition home or self-care (01) | DRG 897 ==
PROVIDERS: Family Provider Family Medicine; PCP Family Medicine; Visit Provider Internal Medicine
DX: F10.230 Alcohol dependence with withdrawal, uncomplicated (principal)
CPT/HCPCS: 36415; 80053; 80307; 82962

== ENCOUNTER → 2024-11-11 | Outpatient (CLI) | payer OTHER, SELFPAY ==
[2024-11-11 13:14] LABS: Anion Gap 10 (5-15); BUN 27 mg/dL (4-19); Calcium,Total 9.3 mg/dL (7.6-11.0); Carbon Dioxide 25.8 mmol/L (21.0-32.0); Chloride 104 mmol/L (98-108); Cholesterol 196 mg/dL (<=200); Creatinine, Serum 1.12 mg/dL (0.70-1.20); EST Glomerular Filtration Rate 81 (>60); Glucose 102 mg/dL (70-99); High Density Lipoprotein 60 mg/dL; Low Density Lipoprotein Calc. 125 mg/dL; Potassium 4.4 mmol/L (3.3-5.1); Sodium Level 139 mmol/L (133-145); Triglycerides 57 mg/dL; Very Low Density Lipoprotein 11 mg/dL (5-40); cholesterol:hdl ratio screen 3.28
== END | disposition home or self-care (01) ==
LOC: MTLAB 09:09
PROVIDERS: PCP Family Medicine; Referring Provider Family Medicine; Visit Provider Family Medicine
DX: Z00.00 Encounter for general adult medical examination without abnormal findings (principal)
CPT/HCPCS: 36415; 80048; 80061; 84403

== ENCOUNTER 2025-01-23 08:12 | Day surgery (SDC) | payer OTHER, SELFPAY ==
--- NOTE | 2025-01-23 08:25 | PCM.PRE.AN2 ---
ASA Classification* ASA Classification ASA Classification: 2 Assessment & Plan Anesthesia* Anesthesia Assessment Anesthesia Assessment: Discussed sedation and/or anesthesia options, risks, benefits, and alternatives with patient/parents/legal guardian/POA. Questions invited. The patient/parents/legal guardian/POA seems to understand and agrees to proceed with anesthesia plan. Reviewed the physical assessment, medical history, allergy history and patient home medications list prior to surgery/procedure/anesthetic and documented any changes. Performed airway and anesthesia risk assessments. Anesthesia Type Anesthesia Type: MAC Anesthesia Focused Assessment* Airway Assessment Mouth opens: >3 cm Mallampati Score: II Labs Anesthesia Preop lab: CBC WBC 4.9 K/mm3 (4.4-11.0) 01/01/19 06:13 01/01/19 RBC 5.14 M/mm3 (4.6-6.2) 01/01/19 06:13 01/01/19 Hgb 16.1 g/dl (13.0-16.5) 01/01/19 06:13 01/01/19 Hct 46.2 % (40-54) 01/01/19 06:13 01/01/19 Plt Count 155 K/mm3 (150-450) 01/01/19 06:13 01/01/19 CHEMISTRY Potassium 4.4 mmol/L (3.3-5.1) 11/11/24 09:12 11/11/24 Sodium 139 mmol/L (133-145) 11/11/24 09:12 11/11/24 Magnesium 1.8 mg/dL (1.6-2.6) 01/01/19 06:13 01/01/19 BUN 27 mg/dL (4-19) H 11/11/24 09:12 11/11/24 Creatinine 1.12 mg/dL (0.70-1.20) 11/11/24 09:12 11/11/24 Glucose 102 mg/dL (70-99) H 11/11/24 09:12 11/11/24 POC Glucose 113 mg/dL (70-110) H 02/03/19 14:46 02/03/19 COAG Pre-Assessment Diagnosis/Proposed Procedure Planned Operative Procedure(s): COLONOSCOPY Anesthesia History Anesthesia History - junior analyst: Anesthesia History - junior analyst Hx Hospitalization No 01/21/25 15:20 Any Problems With Anesthesia No 01/21/25 15:20 Cholinesterase deficiency No 01/21/25 15:20 You/Your Family Experience No 01/21/25 15:20 fever (hyperthermia) with Relationship Recent Exposure to Contagious Disease Does patient have nerve No 01/21/25 15:20 stimulator Patient instructed to have device shut off --Does patient have Pacemaker or ICD? When Was Last Pacemaker Check QUESTION #4 FULL TEXT: You/Your Family Experience fever (hyperthermia) with Anesthesia Last Oral Intake Last Oral intake: Last Oral Intake NPO since Meds taken in AM with sips of water? Meds patient instructed to take am of surgery PONV PONV - junior analyst: PONV - junior analyst Female No 01/21/25 15:20 HX of Motion Sickness No 01/21/25 15:20 HX of N/V After Surgery Yes 01/21/25 15:20 Non-Smoker Yes 01/21/25 15:20 Duration of Surgery greater No 01/21/25 15:20 than 60 minutes Number of Risk Factors 2 01/21/25 15:20 PONV Score Moderate Risk 01/21/25 15:20 Respiratory Assessment Respiratory Assessment - junior analyst: Respiratory Tract Infection Hx - junior analyst Hx Respiratory Tract Infection No 01/21/25 15:20 STOP Sleep Apnea STOP Sleep Apnea - junior analyst: STOP Sleep Apnea - junior analyst Hx Hypertension No 01/21/25 15:20 Hx Sleep Apnea No 01/21/25 15:20 CPAP BIPAP Do you snore loudly (louder No 01/21/25 15:20 than talking or can be heard Do you often feel tired/ No 01/21/25 15:20 fatigued/ sleepy during daytime? Has anyone observed you stop No 01/21/25 15:20 breathing during sleep? STOP Results Negative 01/21/25 15:20 QUESTION #5 FULL TEXT : Do you snore loudly (louder than talking or can be heard through closed doors)? Tobacco Use History Tobacco Use History - junior analyst: Tobacco Use History - junior analyst Tobacco Use Smoking Status Never smoker 01/21/25 15:20 Hx Tobacco Use No 01/21/25 15:20 Years Smoking Packs Smoked per Day Smoking Cessation Date was within the last 15 years Hx Smoking Cessation Date Hx Smoking Cessation Counseling Hematologic Medial History Hematologic Hx - junior analyst: Hematologic Medical Hx - documentation manager Hx of Blood Transfusion No 01/21/25 15:20 Hx of Transfusion in last 3 No 01/21/25 15:20 Months Date of Last Transfusion (if within last 3 months) Ever experience any problems No 01/21/25 15:20 with transfusion(s)? Specify any problems Hx of Preganancy in last 3 N/A 01/21/25 15:20 Months Nurse Filling Out Transfusion [facility] 01/21/25 15:20 & Questions: Date: 01/21/25 01/21/25 15:20 Time: 01/21/25 15:20 Patient unable to answer at this time (ie. confused, unrespo /Reproduction History /Reproductive History - junior analyst: /Reproductive Hx- junior analyst Hx Now No 01/21/25 15:20 Gestational Age (in weeks): EDC: Hx Hx Para Hx Section SAB Active Medications Active Medications: Current Medications Generic Name Dose Route Start Last Admin Trade Name Freq PRN Reason Stop Dose Admin Lactated Ringer's 1,000 mls @ 15 mls/hr 01/23/25 08:30 IV .Q48H HETAL PFSH Medical History Alcohol use Vertigo Non-smoker Home Medications ?Medication ?Instructions ?Recorded ?Last Taken ?Type NK 08/19/18 Unknown History Allergy/AdvReac Type Severity Reaction Status Date / Time amoxicillin Allergy Rash Verified 01/21/25 15:20 Penicillins Allergy Rash Verified 01/21/25 15:20 Surgical History History of wisdom tooth extraction History of tonsillectomy Social History Smoking Status: Never smoker Review of Systems (Anesthesia) ROS Narrative System reviewed and no additional complaints, except as documented.
[2025-01-23 08:26] VITALS: BP 121/74; PULSE 63; RESP 16; TEMP 36.8; O2SAT 97; BMI 28.5
[2025-01-23] MEDS: Lactated Ringers 1,000 ML 15 ML IV (08:42)
--- NOTE | 2025-01-23 09:30 | COLBX_PTH ---
PATIENT: TAYLOR VILA LOC: EN U#:[id number] AGE/SX: 49/M ROOM: RE01/23/[address]: Dr. Lorne Camejo MD : 1975 BED: DIS: 01/23/2025 SPEC #: [id number] RECD: 01/23/25 12:14 STATUS: MARKELL LAUREL #: [id number] KIESHA: 01/23/25 09:[address]: Lorne Camejo DEPT: SURGICAL PATHOLOGY RECD BY: Talon King ENTERED: 01/23/25 13:24 SP TYPE: COLON BX OTHR DR: Dr. Bill Johnson MD Tissues: A - Sigmoid colon biopsy Procedures: Surgery Specimen Level IV HEADER OPERATION: Colonoscopy and polypectomy PRE-OP DIAGNOSIS: Screening TISSUE SUBMITTED: A- Sigmoid colon polyp MICROSCOPIC DIAGNOSIS A. Sigmoid colon, polyp, biopsy: Tubular adenoma. MICROSCOPIC DESCRIPTION Slides are reviewed. GROSS DESCRIPTION A.? Received in formalin labeled with the patient's name and date of . Designated as sigmoid colon polyp are 5 suárez tissue fragments, <0.1 cm to 0.4 cm.? Entirely submitted in 1 cassette.? Smaller fragments may not survive processing. RI 01/23/2025 CPT:10052
--- NOTE | 2025-01-23 09:51 | H&P.OPEN ---
HPI - General HPI Narrative TAYLOR VILA, is a 49 M who presents for screening colonoscopy. Patient has never had a colonoscopy in the past. He denies abdominal pain or blood in the stool. No family history of colon cancer. PFSH Medical History Alcohol use Vertigo Non-smoker Home Medications ?Medication ?Instructions ?Recorded ?Last Taken ?Type NK 08/19/18 Unknown History Allergy/AdvReac Type Severity Reaction Status Date / Time amoxicillin Allergy Rash Verified 01/21/25 15:20 Penicillins Allergy Rash Verified 01/21/25 15:20 Surgical History History of wisdom tooth extraction History of tonsillectomy Social History Smoking Status: Never smoker Past Medical/Surgical History Planned Operation Planned Operative Procedure(s): COLONOSCOPY Previous Hospitalizations/Surgeries HX Hospitalizations: No Any Problems With Anesthesia: No You/Your Family Experience Fever (Hyperthermia) With Anes: No Cholinesterase deficiency: No Cardiovascular Hx Chest Pain within Last 2 months: No Hx of Irregular Heartbeat and/or Afib: No Hx Heart Attack: No Hx Hypertension: No Hx Cardiac Surgery/Stents/Etc.: No Respiratory Hx Chronic Obstructive Pulmonary Disease (COPD): No Hx Emphysema: No Hx Sleep Apnea: No Hx Respiratory Tract Infection/Cold (presently): No Do You Snore Loudly (louder than talking or can be heard): No Do You Often Feel Tired/ Fatigued/ Sleepy Dring Daytime?: No Has Anyone Observed You Stop Breathing During Sleep?: No Result (for STOP score): Negative Hx Smoking: No Smoking Status: Never smoker Gastrointestinal Hx Gastrointestinal Bleed: No Hx Ulcer: No Difficulty Chewing/Swallowing: No Hx Unplanned Weight Loss of 20#: No Neurological Hx Seizures: No Hx Multiple Sclerosis: No Hx Parkinson's Disease: No Does patient have nerve stimulator: No Blood Disorder Hx Hepatitis: No Hx Cirrhosis: No Hx Anemia: No Hx Blood Disorders: No Reproduction : No Genitourinary Hx Renal Disease: No Hx Dialysis: No Musculoskeletal Hx Arthritis: No Hx Rheumatoid Arthritis: No Endocrine Hx Diabetes: No Thyroid Disease: No Psycho/Social Hx Substance Use: No Hx Alcohol Use: Yes (VODKA, LAST DRINK 7 AM TODAY) Hx Anxiety: Yes Hx Depression: Yes Hx Dementia: No Miscellaneous Hx Cancer: No Recent Exposure to Contagious Disease: No Allergies amoxicillin Allergy (Verified 01/21/25 15:20) Rash Penicillins Allergy (Verified 01/21/25 15:20) Rash Maternal: Diabetes and Hypertension Paternal: No pertinent history Discharge Is Pt Admitted From a [facility], or a [facility]: No Who Could Help: DAD After D/C, Where Do you Plan to Go: Return Home Vital Signs Vital Signs Vital Signs: 01/23/25 08:26 01/23/25 08:26 Temperature 98.2 F Temperature Source Temporal Pulse Rate 63 Respiratory Rate 16 Respiratory Pattern Irregular Blood Pressure 121/74 H Blood Pressure Mean 89 Blood Pressure Source Monitor Blood Pressure Position Sitting Blood Pressure Location Right Arm Pulse Ox 97 Oxygen Delivery Method Room Air Weight Weight: 222 lb 10.67 oz Body Mass Index (BMI) 28.5 Physical Exam Const alert and oriented x3 HEENT normocephalic Eyes PERRL Resp normal respiratory effort and normal air movement Cardio regular rate and regular rhythm GI soft to palpation, non-tender and non-distended Extremity normal to inspection Assessment & Plan Assessment/Plan (1) Screen for colon cancer: PLAN: I explained endoscopy in detail to the patient. I explained the risks including but not limited to stroke or heart attack with anesthesia, perforation of the GI tract, bleeding, infection. I explained that any of these could necessitate further emergency surgery. The patient understands and all questions were answered sufficiently. The patient wishes to proceed with procedure. Lorne Camejo MD Pager: [facility] [address] [place] [address], [address] [place] [address] Office: Surgery Risks - Colonoscopy Risks Include but are not Limited To: Risks include but are not limited to: Bleeding, perforation requiring further surgery, inability to complete colonoscopy requiring barium enema.
--- NOTE | 2025-01-23 10:21 | OP.COLON_ITS ---
Patient Name: Kush Beckford Procedure Date: 01/23/2025 9:56 AM Date of : 1975 Age: 49 Procedure: Colonoscopy Indications: Screening for colorectal malignant neoplasm Providers: Lorne Camejo MD Referring MD: Bill Johnson MD Medicines: Propofol per Anesthesia Patient Profile: This is a 49 year old male. Refer to note in patient chart for documentation of history and physical. Last Colonoscopy: none. The patient's first colonoscopy is today. Complications: No immediate complications. Procedure: Pre-Anesthesia Assessment: - Prior to the procedure, a History and Physical was performed, and patient medications and allergies were reviewed. The patient's tolerance of previous anesthesia was also reviewed. The risks and benefits of the procedure and the sedation options and risks were discussed with the patient. All questions were answered, and informed consent was obtained. Prior Anticoagulants: The patient has taken no anticoagulant or antiplatelet agents. ASA Grade Assessment: I - A normal, healthy patient. After reviewing the risks and benefits, the patient was deemed in satisfactory condition to undergo the procedure. After I obtained informed consent, the scope was passed under direct vision. Throughout the procedure, the patient's blood pressure, pulse, and oxygen saturations were monitored continuously. The Colonoscope was introduced through the anus and advanced to the cecum, identified by appendiceal orifice and ileocecal valve. The colonoscopy was performed without difficulty. The patient tolerated the procedure well. The quality of the bowel preparation was good. The ileocecal valve, appendiceal orifice, and rectum were photographed. Scope In: 10:03:50 AM Scope Withdrawal Time 0 hours 6 minutes 46 seconds Scope Out: 10:19:08 AM Total Procedure Duration Time 0 hours 15 minutes 18 seconds Findings: A polyp was found in the sigmoid colon. The polyp was removed with a hot snare. Resection and retrieval were complete. The exam was otherwise without abnormality on direct and retroflexion views. Impression: - One polyp in the sigmoid colon, removed with a hot snare. Resected and retrieved. - The examination was otherwise normal on direct and retroflexion views. Recommendation: - Discharge patient to home. - Resume previous diet. - Continue present medications. - Await pathology results. - Repeat colonoscopy in 5 years for surveillance. Procedure Code(s): --- Professional --- 60125, Colonoscopy, flexible; with removal of tumor(s), polyp(s), or other lesion(s) by snare technique Diagnosis Code(s): --- Professional --- Z12.11, Encounter for screening for malignant neoplasm of colon D12.5, Benign neoplasm of sigmoid colon CPT copyright 2021 [employer]. All rights reserved. The codes documented in this report are preliminary and upon title i teacher review may be revised to meet current compliance requirements. Lorne Camejo MD 01/23/2025 10:21:17 AM This report has been signed electronically. Number of Addenda: 0 Note Initiated On: 01/23/2025 9:56 AM
--- NOTE | 2025-01-23 10:21 | OP.CCLET_ITS ---
01/23/2025 Bill Johnson MD [address] [place] [address] Re : Colonoscopy procedure for Kush Beckford Dear Dr. Johnson This procedure was performed on Thursday, January 23, 2025. My impressions and recommendations are as follows: Impressions : - One polyp in the sigmoid colon, removed with a hot snare. Resected and retrieved. - The examination was otherwise normal on direct and retroflexion views. Recommendations : - Discharge patient to home. - Resume previous diet. - Continue present medications. - Await pathology results. - Repeat colonoscopy in 5 years for surveillance. My findings are described in the full procedure note, which is enclosed. If I can be of further assistance, please feel free to contact me at Doctor phone number(s): , Work: . Sincerely, Lorne Camejo MD 01/23/2025 10:21:17 AM This report has been signed electronically.
[2025-01-23 10:25] VITALS: BP 104/58; BP 121/74; PULSE 53; RESP 16; TEMP 36.6; O2SAT 94
[2025-01-23 10:30] VITALS: BP 105/68; BP 121/74; PULSE 53; RESP 16; O2SAT 95
--- NOTE | 2025-01-23 10:34 | PCM.POST.ANE ---
Anesthesia: Postop Eval I Current Vital Signs Temperature: 97.8 F Pulse Rate: 70 Blood Pressure: 104/58 Respiratory Rate: 16 Pulse Ox: 97 Oxygen Delivery Method: Room Air Assessment Airway patent: Yes Spontaneous unlabored respirations: Yes Mental status: Awake and Calm nausea: No Vomiting: No Anesthesia Complication: No Fluid Hydration Crystalloid volume administer (ml): 600 Total IV fluid infused: 600 Progress Note Anesthesia document: Postop Eval 1 completed: Yes
[2025-01-23 10:35] VITALS: BP 104/58; BP 106/67; BP 121/74; PULSE 54; PULSE 70; RESP 16; TEMP 36.6; O2SAT 95; O2SAT 97
[2025-01-23 10:40] VITALS: BP 105/64; BP 121/74; PULSE 53; RESP 16; TEMP 36.4; O2SAT 94
[2025-01-23 11:01] VITALS: BP 121/74
--- NOTE | 2025-01-23 11:31 | PCM.POSTANE2 ---
Anesthesia Postop Eval I Sum Postop Eval Completion status Anesthesia document: Postop Eval 1 completed: Yes Anesthesia Postop Eval I Summary Anesthesia Postop Eval I Summary: Anesthesia Postop Eval I: Assessment Summary Airway patent Yes 01/23/25 10:35 [email or web address] Spontaneous unlabored Yes 01/23/25 10:35 [email or web address] respirations Mental status Awake,Calm 01/23/25 10:35 [email or web address] nausea No 01/23/25 10:35 [email or web address] Vomiting No 01/23/25 10:35 [email or web address] Anesthesia Postop Eval I: Fluid Summary Crystalloid volume administer 600 01/23/25 10:35 [email or web address] (ml) Colloids volume administered ( ml) Blood Product volume administered (ml) Total IV fluid infused 600 01/23/25 10:35 [email or web address] Anesthesia Postop Eval I: Summary Notes Anesthesia Complication No 01/23/25 10:35 [email or web address] Anesthesia Complication Comment: Post-operative progress note Anesthesia: Postop Eval II Evaluation Mental status: Awake Pain Level: 0 nausea: No Vomiting: No
== END 2025-01-23 11:13 | disposition home or self-care (01) ==
LOC: EN 08:13 → AC 08:14
PROVIDERS: PCP Family Medicine; Referring Provider Family Medicine; Visit Provider Surgery
PROC: 0DJD8ZZ Inspection of Lower Intestinal Tract, Via Natural or Artificial Opening Endoscopic (ICD-10-PCS; CPT 45378; principal; 2025-01-23 09:25)
DX: Z12.11 Encounter for screening for malignant neoplasm of colon (principal); D12.5 Benign neoplasm of sigmoid colon
CPT/HCPCS: 45385; 88305; J2405